=== PATIENT | female | born 1970 | race Caucasian/White ===

== ENCOUNTER 2017-09-30 02:43 | Observation (INO) ==
[2017-09-30] MEDS ORDERED: PHENERGAN 25 MG/ML VIAL 25 MG in SODIUM CHLORIDE 50 ML IV STA (03:22)
[2017-09-30] MEDS ORDERED: SODIUM CHLORIDE 1,000 ML IV STA (03:22)
[2017-09-30] MEDS ORDERED: PHENERGAN 25 MG/ML VIAL ONE (03:31)
--- NOTE | 2017-09-30 04:22 | CT ---
EXAM: CT head without contrast 09/30/2017. Sagittal and coronal reformatted images obtained HISTORY: Dizziness. Nausea COMPARISON: 10/18/2015 FINDINGS: There is no evidence of intracranial hemorrhage. The midline is maintained. There is no h ydrocephalus. Mild small vessel ischemic change. No cerebellar tonsillar ectopia. Evaluation of the calvarium shows no fracture. The mastoid air cells are normally pneumatized. IMPRESSION: No acute intracranial abnormality.
--- NOTE | 2017-09-30 04:48 | ED.PDOC ---
General ED Provider: Dr. CHIQUITA CURIEL-ER Chief Complaint: Dizziness Stated Complaint: i dont feel well Time Seen by Physician: 04:46 Mode of Arrival: Walk-In Information Source: Patient, Family Exam Limitations: No limitations Primary Care Provider: SHARON KIRK Nursing and Triage Documentation Reviewed and Agree: Yes Reviewed sepsis parameters & appropriate labs ordered?: Yes System Inflammatory Response Syndrome: Not Applicable Sepsis Protocol: For patient's 13 years and over: Temp is 96.8 and below OR 101 and greater Pulse >90 BPM Resp >20/minute Acutely Altered Mental Status Are patient's symptoms suggestive of a new infection, such as: -Pneumonia -Skin, Soft Tissue -Endocarditis -UTI -Bone, Joint Infection -Implantable Device -Acute Abdominal Infection -Wound Infection -Meningitis -Blood Stream Catheter Infection -Unknown Endocrine Complaint Exam - Diabetic Complication Complaint/Exam Onset/Duration: unknown Symptoms Are: Still present Timing: Constant Initial Severity: Mild Current Severity: Moderate Character: Lethargic Aggravating: Reports: Medication change Alleviating: Reports: None Associated Signs and Symptoms: Reports: Nausea Related History: Reports: DM 2 Cardiac Risk Factors: Reports: DM CVA Risk Factors: Reports: DM Serious Bacterial Infection Risk Factors: Reports: None Related Surgical History: Reports: None Acetone on Breath: No Dry Mucous Membranes: Yes Kussmaul Respirations: No Glascow Coma Scale (see protocol): 15 Meningeal Signs: No Focal Weakness: None Focal Sensory Loss: None Gait: Normal Nystagmus Present: No Gag Reflex Present: Yes Finger to Nose: Normal Romberg Test Positive: No Babinski Sign: Negative Right, Negative Left Heel to Toe Normal: Yes Differential Diagnoses: Diabetic Ketoacidosis, Hyperglycemia Quality Indicator For Non-Traumatic Chest Pain/Syncope: EKG Performed Review of Systems - Review Of Systems Constitutional: Reports: No symptoms Eyes: Reports: No symptoms Ears, Nose, Mouth, Throat: Reports: No symptoms Respiratory: Reports: No symptoms Cardiac: Reports: No symptoms GI: Reports: Nausea, Poor appetite, Poor fluid intake : Reports: No symptoms Musculoskeletal: Reports: No symptoms Skin: Reports: No symptoms Neurological: Reports: No symptoms Endocrine: Reports: No symptoms Hematologic/Lymphatic: Reports: No symptoms All Other Systems: Reviewed and Negative Past Medical History - Past Medical History Previously Healthy: No Endocrine: Reports: DM 2 Cardiovascular: Reports: Hypertension Respiratory: Reports: None Hematological: Reports: None Gastrointestinal: Reports: None Genitourinary: Reports: None Neuro/Psych: Reports: None Musculoskeletal: Reports: None Cancer: Reports: None Last Menstrual Period: A FEW YEARS AGO - Surgical History General Surgical History: Reports: Tubal ligation - Family History Family History: Reports: None - Social History Smoking Status: Current every day smoker, Heavy tobacco smoker Hx Substance Use: No Alcohol Screening: None - Immunizations Tetanus Shot up to Date: Yes Physical Exam - Physical Exam Appearance: Well-appearing Eyes: LENA, EOMI, Conjunctiva clear ENT: Ears normal, Nose normal, Oropharynx normal Neck: Supple Respiratory: Airway patent Cardiovascular: RRR, Pulses normal, No rub, No murmur GI/: Soft Musculoskeletal: Normal strength, ROM intact, No edema, No calf tenderness Skin: Warm, Dry, Normal color Neurological: Sensation intact, Motor intact, Reflexes intact, Cranial nerves intact, Alert, Oriented Psychiatric: Affect appropriate, Mood appropriate Interpretation - Radiology Interpretation Radiology Interpretation By: Radiologist Radiology Results: Negative Exam Interpreted: CT Scan - EKG Interpretation Time of EKG #1: 04:51 Rate: Normal Rhythm: Sinus Ectopy: None [place]: NL ST Segment: Normal Interpretation: nsr Physician Notification - Case Discussed Physician Notified: dr ji Time of Notification: 04:53 Critical Care Note - Critical Care Note Total Time (mins): 0 Course - Course Hematology/Chemistry: 09/30/17 03:25 09/30/17 03:25 Orders, Labs, Meds: Lab Review 09/30/17 09/30/17 09/30/17 02:45 03:20 03:25 WBC 8.18 RBC 5.11 Hgb 13.7 Hct 41.5 MCV 81.2 MCH 26.8 L MCHC 33.0 RDW Coeff of Jean 13.8 Plt Count 132 L Immature Gran % (Auto) 0.2 Neut % (Auto) 66.6 Lymph % (Auto) 27.4 [place] % (Auto) 4.6 Eos % (Auto) 0.7 Baso % (Auto) 0.5 Immature Gran # (Auto) 0.0 Neut # (Auto) 5.4 Lymph # (Auto) 2.2 [place] # (Auto) 0.4 Eos # (Auto) 0.1 Baso # (Auto) 0.0 Puncture Site Lb O2 Saturation 94.0 L ABG pH 7.399 ABG pCO2 35.4 ABG pO2 71.0 L ABG HCO3 21.9 L ABG Total CO2 23 ABG Base Excess -3 L Giovanny Test + FiO2 % 21.0 Sodium Potassium Chloride Carbon Dioxide Anion Gap BUN Creatinine Estimated GFR (MDRD) BUN/Creatinine Ratio Glucose Calcium Total Bilirubin AST ALT Alkaline Phosphatase Total Creatine Kinase Troponin I Total Protein Albumin Globulin Albumin/Globulin Ratio Amylase Lipase Serum , Qual Urine Color Yellow Urine Clarity Clear Urine pH 5.0 Ur Specific [place] 1.010 Urine Protein Negative Urine Glucose (UA) 2+ Urine Ketones Negative Urine Blood Negative Urine Nitrite Negative Urine Bilirubin Negative Urine Urobilinogen 0.2 Ur Leukocyte Esterase Negative 09/30/17 09/30/17 03:25 03:25 WBC RBC Hgb Hct MCV MCH MCHC RDW Coeff of Jean Plt Count Immature Gran % (Auto) Neut % (Auto) Lymph % (Auto) [place] % (Auto) Eos % (Auto) Baso % (Auto) Immature Gran # (Auto) Neut # (Auto) Lymph # (Auto) [place] # (Auto) Eos # (Auto) Baso # (Auto) Puncture Site O2 Saturation ABG pH ABG pCO2 ABG pO2 ABG HCO3 ABG Total CO2 ABG Base Excess Giovanny Test FiO2 % Sodium 130 L Potassium 4.7 Chloride 95 L Carbon Dioxide 21 Anion Gap 18.7 BUN 29 H Creatinine 1.63 H Estimated GFR (MDRD) 34.00 BUN/Creatinine Ratio 17.79 Glucose 581 H* Calcium 9.6 Total Bilirubin 0.6 AST 8 L ALT 10 L Alkaline Phosphatase 91 Total Creatine Kinase 36 Troponin I 0.0100 Total Protein 7.0 Albumin 3.4 Globulin 3.6 Albumin/Globulin Ratio 0.94 Amylase 67 Lipase 56 Serum , Qual Negative Urine Color Urine Clarity Urine pH Ur Specific [place] Urine Protein Urine Glucose (UA) Urine Ketones Urine Blood Urine Nitrite Urine Bilirubin Urine Urobilinogen Ur Leukocyte Esterase Orders Category Date Time Status ABG DRAW REQUEST Stat CARDIO 09/30/17 03:21 Completed EKG-(ED ONLY) Stat CARDIO 09/30/17 03:21 Completed ED IV/MEDIPORT/POWERPORT .ONCE EMERGENCY 09/30/17 03:21 Active ABG Stat LAB 09/30/17 03:20 Completed AMYLASE Stat LAB 09/30/17 03:25 Completed CBC W/ AUTO DIFF Stat LAB 09/30/17 03:25 Completed COMPREHENSIVE METABOLIC PANEL Stat LAB 09/30/17 03:25 Completed CREATINE KINASE Stat LAB 09/30/17 03:25 Completed LIPASE Stat LAB 09/30/17 03:25 Completed SERUM Stat LAB 09/30/17 03:25 Completed TROPONIN I Stat LAB 09/30/17 03:25 Completed URINALYSIS C & S IF INDICATED Stat LAB 09/30/17 02:45 Completed 0.9 % Sodium Chloride [Saline Flush] MEDS 09/30/17 03:20 Ordered 1 syr IVF PRN PRN Promethazine HCl [Phenergan 25 mg/ml Vial] MEDS 09/30/17 03:31 Discontinued 25 mg .ROUTE .STK-MED ONE Promethazine HCl [Phenergan 25 mg/ml Vial] 25 mg MEDS 09/30/17 03:22 Discontinued 0.9 % Sodium Chloride [Sodium Chloride] 50 ml IV ONCE Sodium Chloride 0.9% [Sodium Chloride] 1,000 ml MEDS 09/30/17 03:[address] HEAD W/O CONTRAST Stat RADS 09/30/17 03:22 Completed Medications Generic Name Dose Route Start Last Admin Trade Name Freq PRN Reason Stop Dose Admin Sodium Chloride 1 syr 09/30/17 03:20 09/30/17 03:43 Saline Flush IVF 1 syr PRN PRN Administration To flush IV Discontinued Medications Generic Name Dose Route Start Last Admin Trade Name Freq PRN Reason Stop Dose Admin Promethazine HCl 25 mg/ Sodium 51 mls @ 75 mls/hr 09/30/17 03:22 09/30/17 03: 58 Chloride IV 09/30/17 04:02 75 mls/hr ONCE STA Administration Sodium Chloride 1,000 mls @ 1,000 mls/hr 09/30/17 03:22 09/30/17 03:46 Sodium Chloride IV 09/30/17 04:21 1,000 mls/hr BOLUS STA Administration Vital Signs: Temp Pulse Resp BP Pulse Ox 09/30/17 02:44 97.3 F L 91 H 18 110/74 98 Departure - Departure Time of Disposition: 04:52 Disposition: PLACED OBSERVATION Discharge Problem: Hyperglycemia due to type 2 diabetes mellitus Qualifiers: 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: unspecified 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 insulin use status Qualified Code(s): E11.65 - Type 2 diabetes mellitus with hyperglycemia Instructions: Diabetic Hyperglycemia (ED) Condition: Good Pt referred to PMD for follow-up: No IPMP verified?: Yes Allergies/Adverse Reactions: Allergies latex Adverse Reaction (Verified 11/07/15 08:33) Home Medications: Ambulatory Orders Atorvastatin Calcium [Lipitor] 40 mg PO DAILY 10/07/12 Losartan Potassium 100 mg PO DAILY 10/07/12 Insulin Glargine,Hum.rec.anlog [Lantus] 50 units SUBCUT BEDTIME 03/08/15 Canagliflozin [Invokana] 300 mg PO DAILY 09/30/17 Gemfibrozil [Lopid] 600 mg PO BIDAC 09/30/17 Hydrochlorothiazide 25 mg PO DAILY 09/30/17 Metformin HCl 1,000 mg PO BID 09/30/17 Tamoxifen Citrate 20 mg PO DAILY 09/30/17 Venlafaxine HCl [Venlafaxine HCl ER] 75 mg PO DAILY 09/30/17 Disposition Discussed With: Patient, Family
[2017-09-30] MEDS ORDERED: ZOFRAN 4 MG/2 ML IVP PRN (04:55)
[2017-09-30] MEDS ORDERED: HUMULIN R SUBCUT PRN (04:56)
[2017-09-30] MEDS ORDERED: HUMULIN R IVP STA (04:57)
[2017-09-30] MEDS ORDERED: SODIUM CHLORIDE 1,000 ML IV SCH (05:00)
[2017-09-30 05:47] VITALS: BMI 29.9
[2017-09-30] MEDS ORDERED: LOPID PO SCH (06:30)
--- NOTE | 2017-09-30 07:18 | PCM ---
- Chief Complaint Chief Complaint: Dizziness, hyperglycemia, Ran out of meds. - History of Present Illness History of Present Illness: The patient has changed jobs recently and had no insurance. Saturday she started having nausea, dizziness, fatigue. She last took insulin on , normally taking 50 units lantus daily (vial) and metformin daily 1000mg BID and invokana. She has been spacing out her metformin due to recent job change back in august. 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 She has not been checking glucose, she has not been monitoring her BP despite HTN. Last A1C ~90 days ago, she does not remember the value. Has had pneumonia vaccine within past 5 years. She has not seen podiatry. Does not know if she has had microalbumin but is on ARB. Has history of hyperlipidemia mixed type on Fibrate and on Statin. She reports that she presented to ER 2:30-3:00 this am, seen by Dr. Wilkinson 4:46 am with glucose up to >500 and noted nausea, dizziness, fatigue, shoulder pain/weakness. No reported hip pain/weakness. PCP listed as [facility]. Mild to moderate symptoms, reported medication changes as listed "Spacing out metformin and ran out of my insulin needles." DDX considered Hyperglycemia, DKA. Did not meet SIRS criteria. Nausea, DM2 uncontrolled, last A1C unknown. ER note reviewed, ROS reviewed, No focal findings. Exam completed and dry mucus membranes and negative remainder exam. CT head completed in ER and negative, reviewed with patient this am as I saw her 07:08 am SCU1-1. EKG NSR, NL axis and normal per ER report to me. We talked about her ER labs and found her to have normal WBC, normal Hgb, normal Hct, mildly low platelets at 132. She had pseudohyponatremia with corrected sodium 138-142 depending on calculator. She had DARIO with Cr 1.63 and BUN 29. ABG completed by ER and somewhat complicated by the pseudohyponatremia. She had what appeared to be mixed metabolic alkalosis/metabolic acidosis with an increased gap. Using corrected sodium of 138, Albumin 3.4, pH 7.4, hc03 22. Calculated. UA was negative for ketones. Since urine ketones are negative I offered to her to check serum, discussed low yield and she declined. Her GCS is 15 and full, she is able to fully communicate and she feels much better already. We discussed the repeat labs this am at 06:53 and her glucose was down from 582 down to 252, sodium 136, K+ 3.9 and creatinine had improved from 1.63 to 1.27. Still with some nausea, the proximal shoulder weakness has resolved and now she just feels tired from stay in ER overnight. DARIO at presentation, fluid hydration improving. No A1C was ordered, I have ordered this, this am. Diabetic diet. She has been started on lovenox while in hospital. Monitored, no events since 05:00 when she got to floor per telemetry. Tetanus status is up to date. Pneumonia status is up to date. Not interested in discussion about smoking cessation. We will try to get her a week worth of insulin/needles. I will provide sample of insulin pen with 1 week of needles until she can get what she needs from her primary team Rabia Chavarria (listed as Fe). Reports history of breast lumpectomy. Family history of breast cancer and was put on tamoxifen and she started menopause 44 years old. No bleeding since that time. Sexually active. No vomiting/ diarrhea. No abdominal pain. NO vaginal discharge, no bleeding. No Muscle weakness now. No pain. Ambulatory. - Review of Systems Constitutional: weakness, fatigue, loss of appetite. No: fever, chills, sweats , other Eyes: No: blurred vision, double-vision, discharge, itching, pain, redness, photophobia, other Ears: No: pain, bleeding, drainage, ringing, hearing loss, other Nose: No: bleeding, congestion, discharge, other Throat: No: pain, swelling, voice change, other Mouth: other (dentures). No: bleeding, pain, swelling Respiratory: No: cough, shortness of air, wheeze, hemoptysis, pain with breathing, other Cardiovascular: No: chest pain, left arm pain, diaphoresis, PND, orthopnea, edema, palpitations, syncope, other Gastrointestinal: nausea. No: abdominal pain, other, vomiting, diarrhea, melena , hematemesis, hematochezia, dysphagia, constipation Genitourinary: No: dysuria, hematuria, frequency, incontinence, flank pain, vaginal discharge, abnormal bleeding, pelvic pain, other Neurological: No: headache, other, dizziness, seizure, numbness, weakness, speech difficulty, problems with walking, tremor, fainting Musculoskeletal: No: pain, swelling in joints, other Skin: No: rash, pruritus, lacerations, wounds, bruising, other Immunology: No: hives, itching, frequent infections, difficulty healing, other Hematology: No: easy bruising, easy bleeding, swollen glands, other Endocrine: No: weight changes, cold intolerance, heat intolerance, excessive thirst, excessive hunger, polyuria, other Psychiatric: No: depression, anxiety, sleeplessness, hopelessness, suicidal, hallucinations, other Habits: tobacco use. No: substance use, alcohol use, other - Past Medical History Past Medical History: DM2 Control status unknown, HTN, Menopause, Breast Lump, Hyperlipidemia, Overweight. - Past Surgical History Past Surgical History: Lumpectomy 2015, BTL 1999, Knee scope 2013 - Allergies Allergies/Adverse Reactions: Allergies Allergy/AdvReac Type Severity Reaction Status Date / Time latex AdvReac Verified 11/07/15 08:33 - Medications Medications: Medications Generic Name Dose Route Start Last Admin Trade Name Freq PRN Reason Stop Dose Admin Atorvastatin Calcium 40 mg 09/30/17 09:00 Lipitor PO DAILY MAYRA Enoxaparin Sodium 30 mg 09/30/17 09:00 Lovenox SUBCUT DAILY MAYRA Gemfibrozil 600 mg 09/30/17 06:30 Lopid PO BIDAC MAYRA Sodium Chloride 1,000 mls @ 100 mls/hr 09/30/17 05:00 Sodium Chloride IV .Q10H MAYRA Insulin Glargine unit 09/30/17 21:00 Lantus SUBCUT BEDTIME MAYRA Insulin Human Regular 0 unit 09/30/17 04:56 Humulin R SUBCUT PRN PRN Hyperglycemica Protocol Losartan Potassium 100 mg 09/30/17 09:00 Cozaar PO DAILY MAYRA Non-Formulary Medication 75 mg 09/30/17 09:00 Venlafaxine Hcl [Venlafaxine Hcl Er] PO DAILY MAYRA Non-Formulary Medication 20 mg 09/30/17 09:00 Tamoxifen Citrate [Tamoxifen Citrate] PO DAILY MAYRA Ondansetron HCl 4 mg 09/30/17 04:55 Zofran 4 Mg/2 Ml IVP Q4HR PRN Nausea / Vomiting Sodium Chloride 1 syr 09/30/17 03:20 09/30/17 03:43 Saline Flush IVF 1 syr PRN PRN Administration To flush IV - Family History Past Family History: Mother: . Breast cancer. Father: . Lung Cancer, HTN, DM, Hyperlipidemia. Brother: Healthy. Sister: Healthy. Sister: DM. Sons x4: healthy - Social History Past Social History: Tobacco: 1 ppd x 30 years. ETOH: Rare. Drugs: None. 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 - Vital Signs Temperature: 97.7 F Pulse Rate: 81 Respiratory Rate: 16 Blood Pressure: 110/74 O2 Sat by Pulse Oximetry: 97 - Body Composition Height: 5 ft 3 in Weight: 168 lb 13.985 oz Body Mass Index (BMI): 29.9 - Physical Examination HEENT: Vital Signs - 24 hr 09/30/17 09/30/17 09/30/17 02:44 05:33 08:45 Temperature 97.3 F L 97.7 F 97.7 F Pulse Rate 91 H 81 81 Respiratory 18 18 16 Rate Blood Pressure 110/74 110/74 O2 Sat by Pulse 98 97 97 Oximetry Constitutional: Appearance-No acute distress, lying in exam bad room SCU- 1Consistent with stated age. Orientation- Oriented x 3, alertGait-Normal pace, normal arm movement. Build and Nutrition- overweight BMI 29.9 General- Patient is pleasant and cooperative with the interview and exam. Full sentences, good eye contact, normal cognition. Integumentary: General-No rashes, ulcers or lesions. Palpation- Normal skin moisture/turgor. Skin is warm to touch, appropriate. Capillary refill is normal bilateral Upper and lower extremity. Skin is warm/dry and w/o rashes. Head/Neck: Head- normocephalic and atraumatic. Neck- without visible/palpable lumps or pulsations. Palpation- No bony tenderness about head/neck along frontal, occipital, temporal, parietal, mastoid, jawline, zygoma, orbit or any other location. NO temporal artery tenderness. No TMJ tenderness. Neck Supple. Thyroid-No thyromegaly, no nodules Eye: Bilaterally PERRLA, EOMI. No discharge. Upper and lower eyelids are normal. Sclera/conjunctiva normal without discharge. Cornea is normal and clear. Lens is normal. Eyeball appears normal. No ciliary flushing, no conjunctival injection. ENMT: Pinna- normal without tenderness or erythema. External auditory canal Left- normal without erythema or discharge, no excessive cerumen. External auditory canal Right-normal without erythema or discharge, no excessive cerumen. TM left- Baer/pearly, normal light reflex and anatomy TM Right- Baer/ pearly, normal light reflex and anatomy Hearing Assessment-normal to conversational speech. Nose and sinus- No sinus tenderness along frontal/ maxillary region. External appearance normal and midline. Nares- bilateral quiet airflow, no discharge. Nasal mucosa- No bleeding noted and no ulcerations observed. [place], moist. Turbinates non boggy. Lips- normal color, appear moist without cracks/lesions Oral Cavity/Palate- hard/soft palate intact without lesions,. No Thrush. entition assessed upper dentures in place. Mucosa Tacky, dry. Tongue normal midline. Oropharynx- no pharyngeal erythema, Uvula midline. No post nasal drip. No exudate. Salivary glands- Non tender to palpation CHEST/LUNG: Inspection- symmetric chest wall no pectus deformity. Normal effort , no distress, no use of accessory muscles. Palpation- nontender sternum, ribline. No abnormal pulsations. Auscultation- Breath sounds normal throughout all lung jacobsen. Normal tracheal sounds, Normal bronchial sounds overlying sternum, Bronchovessicular sounds normal between scapulae posteriorly, Normal vessicular breath sounds heard throughout periphery. Lungs are clear today. Adventitious sounds- No wheezes, rales, rhonchi. CARDIOVASCULAR: Carotid artery- normal, no bruits or abnormal pulsations. Jugular vein- no pulsations. Palpation/Percussion- Normal PMI, no palpable thrill Auscultation- Regular rate and rhythm. No murmur noted in sitting, supine positions. Extremities- no digital clubbing, cyanosis, edema, increased warmth. ABDOMEN: Inspection- normal and no visible pulsations. Normal contour. Auscultation- Bowel sounds normal, no abdominal bruits. Palpation/Percussion- soft, non-tender, no rebound tenderness, no rigidity (guarding), no jar tenderness, no masses. Liver-no hepatomegaly, Spleen no splenomegaly, Hernias - none. Rectal not examined. Peripheral Vascular: Upper extremity Left- Normal temperature with pink nailbeds and no ulcerations. Upper extremity Right- Normal temperature with pink nailbeds and no ulcerations. Lower extremity- Normal temperature with pink nailbeds and no ulcerations. DP pulses 2+ bilaterally. Pedal hair intact. Normal capillary refill. Edema- No edema. Numerous excoriations bilateral LE. History of cats at home per patient. Musculoskeletal: Generalized-No generalized swelling or edema of extremities, no digital clubbing or cyanosis, neurovascularly intact all four extremities. Upper extremity- Symmetrical posture. No visible deformity. Normal sensation along medial and lateral upper extremity proximally and distally. NO tenderness overlying shoulder, lateral/medial epicondyle. Recruiter Account Manager 5/5 and strength 5/5 bilateral UE. Elbow palpated, no tenderness overlying olecranon. Normal supination, pronation to active/passive ROM and to resisted rotation. Bicep insertion/tricep insertion appear normal without obvious pathology. Rotator cuff evaluated and intact. Normal wrist ROM bilaterally. Normal hand movement, intrinsic muscles of hands normal. No tenderness to palpation of hands/wrists/ elbows. Lower extremity- Hip: Not tender to palpation, no pain, no swelling, edema or erythema of surrounding tissue, normal strength and tone. Normal appearing hip ROM bilaterally without pain. Knee: Knee ROM normal. No tenderness overlying trochanters, no tenderness about patella, quad tendon, patellar tendon. No tenderness at tibial tuberosity. Ankle: normal ROM not tender to palpation along medial/lateral malleolus. Foot: Normal movement of toes, no tenderness bilateral feet/toes. Normal foot type. Spine/Ribs- No deformities, masses or tenderness, no known fractures, normal strength, Normal ROM. Normal stability No tenderness along C/T/L spine. Normal appearing ROM about spine. Neurological: General- Moves all 4 extremities symmetrically. Symmetrical face and body posture. Cranial nerves- individually evaluated II-XII and intact. PERRLA, Normal EOMI, visual/special senses appear intact, Face is symmetrical and normal sensation/movement, normal tongue, normal strength/posture of neck musculature. Reflexes- intact with DTR 2+ patellar, Achilles, bicep, brachial, tricep. Ankle clonus normal with 2 beats. Strength- 5/5 bilateral UE and LE. Soft touch- intact bilateral UE and LE. Temperature sensation- intact bilateral UE and LE. Neuropsych: Oriented- Person, place, time. (AAOx3), Mood/affect- normal and congruent. Able to articulate well. Speech-Normal speech, normal rate, normal tone, normal use of language, volume and coherence. Thought content- normal with ability to perform basic computations and apply abstract thought/reason. Associations- intact, no SI/HI, no hallucinations, delusions, obsessions. Judgment/insight- Appropriate. Memory-Recall intact, remote and recent memory intact. Knowledge- Age appropriate fund of knowledge, concentration and attention span normal. Lymphatic: Head/Neck- normal size and non tender to palpation. Axillary- normal size and non tender to palpation. Femoral and Inguinal- normal size and non tender to palpation. - Lab/Tests/Diagnostic Imaging Lab/Tests/Diagnostic Imaging: Laboratory Last Values WBC 8.63 K/ul (4.6-10.2) 09/30/17 06:53 RBC 4.92 10^6/ul (4.20-5.40) 09/30/17 06:53 Hgb 13.3 g/dl (12.0-16.0) 09/30/17 06:53 Hct 40.0 % (37.0-47.0) 09/30/17 06:53 MCV 81.3 fl (81.0-99.0) 09/30/17 06:53 MCH 27.0 pg (27.0-31.0) 09/30/17 06:53 MCHC 33.3 (31.8-35.4) 09/30/17 06:53 RDW Coeff of Jean 13.9 % (11.6-14.8) 09/30/17 06:53 Plt Count 131 10^3/uL (140-440) L 09/30/17 06:53 Immature Gran % (Auto) 0.2 % (0.0-5.0) 09/30/17 06:53 Neut % (Auto) 51.8 09/30/17 06:53 Lymph % (Auto) 41.0 (10.0-50.0) 09/30/17 06:53 [place] % (Auto) 5.8 (0-10) 09/30/17 06:53 Eos % (Auto) 0.7 % (0.0-7.0) 09/30/17 06:53 Baso % (Auto) 0.5 % (0.0-3.0) 09/30/17 06:53 Immature Gran # (Auto) 0.0 (0.0-1.0) 09/30/17 06:53 Neut # (Auto) 4.5 K/ul (2.0-6.9) 09/30/17 06:53 Lymph # (Auto) 3.5 K/uL (0.60-3.4) H 09/30/17 06:53 [place] # (Auto) 0.5 K/uL (0.4-2.0) 09/30/17 06:53 Eos # (Auto) 0.1 K/ul (0.0-0.7) 09/30/17 06:53 Baso # (Auto) 0.0 K/uL (0-0.2) 09/30/17 06:53 Puncture Site Lb 09/30/17 03:20 O2 Saturation 94.0 % (95-100) L 09/30/17 03:20 ABG pH 7.399 (7.35-7.45) 09/30/17 03:20 ABG pCO2 35.4 mmHg (35-45) 09/30/17 03:20 ABG pO2 71.0 mmHg (85-100) L 09/30/17 03:20 ABG HCO3 21.9 (22.0-26.0) L 09/30/17 03:20 ABG Total CO2 23 (22.0-28.0) 09/30/17 03:20 ABG Base Excess -3 (-2.0-2.0) L 09/30/17 03:20 Giovanny Test + 09/30/17 03:20 FiO2 % 21.0 % 09/30/17 03:20 Sodium 136 mmol/L (136-145) 09/30/17 06:53 Potassium 3.9 mmol/L (3.5-5.10) 09/30/17 06:53 Chloride 102 mmol/L (98-107) 09/30/17 06:53 Carbon Dioxide 22 mmol/L (21-32) 09/30/17 06:53 Anion Gap 15.9 09/30/17 06:53 BUN 28 mg/dL (7-18) H 09/30/17 06:53 Creatinine 1.27 mg/dL (0.60-1.30) 09/30/17 06:53 Estimated GFR (MDRD) 45.00 mL/min 09/30/17 06:53 BUN/Creatinine Ratio 22.04 09/30/17 06:53 Glucose 252 mg/dL (70-110) H D 09/30/17 06:53 Hemoglobin A1c 12.2 (4.8-6.0) H 09/30/17 06:53 Calcium 9.1 mg/dL (8.2-10.2) 09/30/17 06:53 Total Bilirubin 0.4 mg/dL (0.00-1.20) 09/30/17 06:53 AST 7 U/L (15-37) L 09/30/17 06:53 ALT 10 U/L (12-78) L 09/30/17 06:53 Alkaline Phosphatase 79 U/L (42-98) 09/30/17 06:53 Total Creatine Kinase 36 U/L 09/30/17 03:25 Troponin I 0.0100 ng/ml (0.0000-0.4000) 09/30/17 03:25 Total Protein 6.4 g/dL (6.4-8.2) 09/30/17 06:53 Albumin 3.1 g/dL (3.4-5.0) L 09/30/17 06:53 Globulin 3.3 09/30/17 06:53 Albumin/Globulin Ratio 0.94 09/30/17 06:53 Amylase 67 U/L (25-115) 09/30/17 03:25 Lipase 56 U/L (8-78) 09/30/17 03:25 Serum , Qual Negative (NEGATIVE) 09/30/17 03:25 Urine Color Yellow (YELLOW) 09/30/17 02:45 Urine Clarity Clear (CLEAR) 09/30/17 02:45 Urine pH 5.0 (5-9) 09/30/17 02:45 Ur Specific [place] 1.010 (1.005-1.030) 09/30/17 02:45 Urine Protein Negative (NEGATIVE) 09/30/17 02:45 Urine Glucose (UA) 2+ (NEGATIVE) 09/30/17 02:45 Urine Ketones Negative (NEGATIVE) 09/30/17 02:45 Urine Blood Negative (NEGATIVE) 09/30/17 02:45 Urine Nitrite Negative (NEGATIVE) 09/30/17 02:45 Urine Bilirubin Negative (NEGATIVE) 09/30/17 02:45 Urine Urobilinogen 0.2 (0.2) 09/30/17 02:45 Ur Leukocyte Esterase Negative (NEGATIVE) 09/30/17 02:45 Na/K Trends 09/30/17 09/30/17 Range/Units 03:25 06:53 Sodium 130 L 136 (136-145) mmol/L Potassium 4.7 3.9 (3.5-5.10) mmol/L Glucose Trends 09/30/17 09/30/17 Range/Units 03:25 06:53 Glucose 581 H* 252 H D (70-110) mg/dL CT Head: Negative for acute processes. - Assessment (1) DARIO (acute kidney injury) Status: Acute Code(s): N17.9 - ACUTE KIDNEY FAILURE, UNSPECIFIED SNOMED Code (s): 02599254 (2) Hyperglycemia due to type 2 diabetes mellitus Status: Acute Code(s): E11.65 - TYPE 2 DIABETES MELLITUS WITH HYPERGLYCEMIA SNOMED Code(s): 69279981, 352795655767803 Qualifiers: Diabetes mellitus termite technician insulin use: unspecified half-way insulin use status Qualified Code(s): E11.65 - Type 2 diabetes mellitus with hyperglycemia (3) Hyponatremia Status: Acute Code(s): E87.1 - HYPO-OSMOLALITY AND HYPONATREMIA SNOMED Code( s): 78996859 (4) Smokes 1 pack of cigarettes per day Status: Acute Code(s): F17.210 - NICOTINE DEPENDENCE, CIGARETTES, UNCOMPLICATED SNOMED Code(s): 48117469 - Plan Plan: Hyperglycemia: History of Diabetes Type 2, she reports that her PCP Rabia Chavarria has done w/u for Type 1 vs type 2. She is Uncontrolled, Insulin dependent. At this time Nephropathy/retinopathy/neuropathy status unknown. She has DARIO at present. Reviewed goals of Diabetes today. The Goal is to have an Hgb A1C 7.0-8.0% for most patients. For the remainder a discussion with patient about R/B/A and review of reasonable hypoglycemic symptoms is needed. Good BP control is encouraged with Goal BP based on JNC 8 guidelines 2014 of SBP <140 and DBP <90. She is at goal. She is on ARB. She is on statin. Close monitoring of Lipid levels encouraged. Recommend once yearly eye evaluation by optometry to be followed as outpatient. Good foot health discussed, no sores/lesions noted today. Discussed need for compliance and need to take medications as rx. Weight needs to be monitored. Monitor portions and caloric intake. We discussed low likelihood of Hyperosmolar/hyperglycemia and DKA at this time. She was hyperglycemic due to missing medications. No recent A1C within past 90 days and she does not know her control status. We will check A1C today. Continue her lantus at 50 units. I will get her a sample of long acting insulin pen with 1 week worth of needles for the pen. We will also discharge her with Rx for insulin pen. She is on Invokana, discussed with her to talk to her PCP about this agent, risks of amputation discussed. DARIO is resolving, Cr imp. 13 units 05:05. I stopped regular insulin and will give meal time insulin as better way to reduce her post prandials. - Pneumovax frequency discussed. She has had PPSV23 per her report. - Yearly microalbumin as outpatient - Yearly eye evaluation as outpatient - Continue Cozaar. - Offered museum educator, declined. - Continue NS 100 ml/hour - Continue lantus 50units daily - Humalog 5 units with meals today. (between 0.05 and 0.1 units/kg/meal). - Patient to talk to PCP about Invokana as outpatient. - Hold metformin while in hospital. DARIO: Cr improved from 1.63 to 1.27 this am with fluid hydration and glycemic control. GFR has gone from 34 to 45. - Continue NS 100 ml/hour - Monitor K+ as 3.9 on recent check. No replacement just yet. - Hold metformin while in hospital. Essential HTN: Controlled on home meds. continue. She is on ARB. - Continue cozaar. Mixed Hyperlipidemia: Follow-up as outpatient. DVT Prophy: Lovenox 30mg Subcutaneous. 1 Pack per day Tobacco: Tobacco Cessation discussed today for 2 minutes. We reviewed lifestyle choices and discussed quitting. Ready to quit status discussed. The risks and hazards of continued tobacco abuse were discussed with the patient today and total tobacco cessation as recommended. It was clearly and unambiguously explained that continued tobacco usage will adversely affect overall morbidity and mortality of the patient. Patient was informed that tobacco use can lead to numerous cancers, worsening of cardiovascular and pulmonary systems and that lung damage is often permanent and irreversible. I advised the patient to inform me if any further assistance is requested, as we can offer counseling services, nicotine replacement inhaled, patch, lozenge, gum , or prescription medications to include Chantix or Wellbutrin for assistance. She is not interested in cessation at this time. Disposition: If her sugars continue to improve, hopefully home this afternoon with f/u with Rabia Chavarria tomorrow. I will give her an insulin pen at discharge with 1 week worth of needles. We will try to get her 1 week worth of her insulin syringes as well. She is not on meal time insulin, with A1C today at 12.2 it is likely needed. She needs to f/u with PCP to discuss accucheck, fasting/post prandial and to work on A1C. DM educator declined. High acuity severity with DARIO, Hyperglycemia. Improving now and more stable. REviewed ER note, talked with ER attending, talked with am nurse, reviewed telemetry, reviewed labs, reviewed EKG and talked with patient. Labs are improving total 70 minutes spent in admission this am. - Admit to Obs - She would like to go home this afternoon if possible. Discussed if feeling better this could be possible. - High acuity with DARIO and hyperglycemia, but improving.
[2017-09-30] MEDS ORDERED: NON-FORMULARY MEDICATION (Tamoxifen Citrate [Tamoxifen Citrate] 20 MG) PO SCH (09:00)
[2017-09-30] MEDS ORDERED: LIPITOR PO SCH (09:00)
[2017-09-30] MEDS ORDERED: EFFEXOR XR PO SCH (09:00)
[2017-09-30] MEDS ORDERED: VENLAFAXINE HCL 75 MG PO SCH (09:00)
[2017-09-30] MEDS ORDERED: COZAAR PO SCH (09:00)
[2017-09-30] MEDS ORDERED: LOVENOX SUBCUT SCH (09:00)
[2017-09-30] MEDS: HUMALOG SUBCUT SCH ×2 (09:14→11:30)
[2017-09-30 10:42] VITALS: BP 99/59; TEMP 98.6
[2017-09-30] MEDS ORDERED: HUMALOG SUBCUT SCH (12:00)
--- NOTE | 2017-09-30 13:50 | PCM.DC ---
Final Diagnosis: Hyperglycemia due to type 2 diabetes mellitus (Acute) DARIO (acute kidney injury) (Resolved) Hyponatremia (Resolved) Smokes 1 pack of cigarettes per day (chronic) Overweight BMI 29.9. Mixed hyperlipidemia (CHRONIC/STABLE) Essential HTN (CHRONIC/STABLE) (1) Hyperglycemia due to type 2 diabetes mellitus Status: Acute Code(s): E11.65 - TYPE 2 DIABETES MELLITUS WITH HYPERGLYCEMIA SNOMED Code(s): 10599671, [id number] Qualifiers: Diabetes mellitus chcf insulin use: unspecified chcf insulin use status Qualified Code(s): E11.65 - Type 2 diabetes mellitus with hyperglycemia (2) DARIO (acute kidney injury) Status: Resolved Code(s): N17.9 - ACUTE KIDNEY FAILURE, UNSPECIFIED SNOMED Code(s): 62484136 (3) Hyponatremia Status: Resolved Code(s): E87.1 - HYPO-OSMOLALITY AND HYPONATREMIA SNOMED Code(s): 34591092 (4) Smokes 1 pack of cigarettes per day Status: Chronic Code(s): F17.210 - NICOTINE DEPENDENCE, CIGARETTES, UNCOMPLICATED SNOMED Code(s): 22945372 Reason for Hospitalization: Hyperglycemia with glucose 581, DARIO, Pseudohyponatremia (RESOLVED WITH GLUCOSE CONTROL), Essential HTN (STABLE/CHRONIC), Mixed hyperlipidemia (CHRONIC/STABLE) . Prognosis at Discharge: Improved. A1C was 12.2 and markedly elevated. Glucose likely at baseline now. She feels fine and back to normal. Condition at Discharge: Improved Medications at Discharge: Ambulatory Orders Medication Instructions Recorded Atorvastatin Calcium [Lipitor] 40 mg PO DAILY 10/07/12 Losartan Potassium 100 mg PO DAILY 10/07/12 Insulin Glargine,Hum.rec.anlog 50 units SUBCUT BEDTIME 03/08/15 [Lantus] Canagliflozin [Invokana] 300 mg PO DAILY 09/30/17 Gemfibrozil [Lopid] 600 mg PO BIDAC 09/30/17 Hydrochlorothiazide 25 mg PO DAILY 09/30/17 Tamoxifen Citrate 20 mg PO DAILY 09/30/17 Venlafaxine HCl [Venlafaxine HCl 75 mg PO DAILY 09/30/17 ER] Resume home meds. Sample BASAGLAR 100units/ml given to patient [id number] 11/30. (USE THIS OR LANTUS NOT BOTH) Sample Insulin pen needles #7 given to patient today. Stop Metformin Resume other home meds. Lab/Diagnostics: Laboratory Last Values WBC 8.63 K/ul (4.6-10.2) 09/30/17 06:53 RBC 4.92 10^6/ul (4.20-5.40) 09/30/17 06:53 Hgb 13.3 g/dl (12.0-16.0) 09/30/17 06:53 Hct 40.0 % (37.0-47.0) 09/30/17 06:53 MCV 81.3 fl (81.0-99.0) 09/30/17 06:53 MCH 27.0 pg (27.0-31.0) 09/30/17 06:53 MCHC 33.3 (31.8-35.4) 09/30/17 06:53 RDW Coeff of Jean 13.9 % (11.6-14.8) 09/30/17 06:53 Plt Count 131 10^3/uL (140-440) L 09/30/17 06:53 Immature Gran % (Auto) 0.2 % (0.0-5.0) 09/30/17 06:53 Neut % (Auto) 51.8 09/30/17 06:53 Lymph % (Auto) 41.0 (10.0-50.0) 09/30/17 06:53 [place] % (Auto) 5.8 (0-10) 09/30/17 06:53 Eos % (Auto) 0.7 % (0.0-7.0) 09/30/17 06:53 Baso % (Auto) 0.5 % (0.0-3.0) 09/30/17 06:53 Immature Gran # (Auto) 0.0 (0.0-1.0) 09/30/17 06:53 Neut # (Auto) 4.5 K/ul (2.0-6.9) 09/30/17 06:53 Lymph # (Auto) 3.5 K/uL (0.60-3.4) H 09/30/17 06:53 [place] # (Auto) 0.5 K/uL (0.4-2.0) 09/30/17 06:53 Eos # (Auto) 0.1 K/ul (0.0-0.7) 09/30/17 06:53 Baso # (Auto) 0.0 K/uL (0-0.2) 09/30/17 06:53 Puncture Site Lb 09/30/17 03:20 O2 Saturation 94.0 % (95-100) L 09/30/17 03:20 ABG pH 7.399 (7.35-7.45) 09/30/17 03:20 ABG pCO2 35.4 mmHg (35-45) 09/30/17 03:20 ABG pO2 71.0 mmHg (85-100) L 09/30/17 03:20 ABG HCO3 21.9 (22.0-26.0) L 09/30/17 03:20 ABG Total CO2 23 (22.0-28.0) 09/30/17 03:20 ABG Base Excess -3 (-2.0-2.0) L 09/30/17 03:20 Giovanny Test + 09/30/17 03:20 FiO2 % 21.0 % 09/30/17 03:20 Sodium 138 mmol/L (136-145) 09/30/17 12:25 Potassium 3.7 mmol/L (3.5-5.10) 09/30/17 12:25 Chloride 101 mmol/L (98-107) 09/30/17 12:25 Carbon Dioxide 25 mmol/L (21-32) 09/30/17 12:25 Anion Gap 15.7 09/30/17 12:25 BUN 30 mg/dL (7-18) H 09/30/17 12:25 Creatinine 1.20 mg/dL (0.60-1.30) 09/30/17 12:25 Estimated GFR (MDRD) 48.00 mL/min 09/30/17 12:25 BUN/Creatinine Ratio 25.00 09/30/17 12:25 Glucose 230 mg/dL (70-110) H 09/30/17 12:25 Hemoglobin A1c 12.2 (4.8-6.0) H 09/30/17 06:53 Calcium 9.3 mg/dL (8.2-10.2) 09/30/17 12:25 Total Bilirubin 0.4 mg/dL (0.00-1.20) 09/30/17 12:25 AST 7 U/L (15-37) L 09/30/17 12:25 ALT 10 U/L (12-78) L 09/30/17 12:25 Alkaline Phosphatase 79 U/L (42-98) 09/30/17 12:25 Total Creatine Kinase 36 U/L 09/30/17 03:25 Troponin I 0.0100 ng/ml (0.0000-0.4000) 09/30/17 03:25 Total Protein 6.4 g/dL (6.4-8.2) 09/30/17 12:25 Albumin 3.1 g/dL (3.4-5.0) L 09/30/17 12:25 Globulin 3.3 09/30/17 12:25 Albumin/Globulin Ratio 0.94 09/30/17 12:25 Amylase 67 U/L (25-115) 09/30/17 03:25 Lipase 56 U/L (8-78) 09/30/17 03:25 Serum , Qual Negative (NEGATIVE) 09/30/17 03:25 Urine Color Yellow (YELLOW) 09/30/17 02:45 Urine Clarity Clear (CLEAR) 09/30/17 02:45 Urine pH 5.0 (5-9) 09/30/17 02:45 Ur Specific [place] 1.010 (1.005-1.030) 09/30/17 02:45 Urine Protein Negative (NEGATIVE) 09/30/17 02:45 Urine Glucose (UA) 2+ (NEGATIVE) 09/30/17 02:45 Urine Ketones Negative (NEGATIVE) 09/30/17 02:45 Urine Blood Negative (NEGATIVE) 09/30/17 02:45 Urine Nitrite Negative (NEGATIVE) 09/30/17 02:45 Urine Bilirubin Negative (NEGATIVE) 09/30/17 02:45 Urine Urobilinogen 0.2 (0.2) 09/30/17 02:45 Ur Leukocyte Esterase Negative (NEGATIVE) 09/30/17 02:45 Na/K Trends 09/30/17 09/30/17 09/30/17 Range/Units 03:25 06:53 12:25 Sodium 130 L 136 138 (136-145) mmol/L Potassium 4.7 3.9 3.7 (3.5-5.10) mmol/L Glucose Trends 09/30/17 09/30/17 09/30/17 Range/Units 03:25 06:53 12:25 Glucose 581 H* 252 H D 230 H (70-110) mg/dL CT HEAD: NEGATIVE EKG: Normal. Education Provided to Patient and Family: 1. Personally called and set up appt for this Saturday 10:45 appt with Ayleen WADDELL. 2. Discussed to consider Stopping metformin, I am holding it at discharge. 3. Will continue invokana for now. Would talk with PCP about changing this with recent literature supporting 2x risks of amputation. 4. Would consider trying to get Xultophy as an option for patient as she does not want meal time insulin for now. GLP-1 would help with post prandials and would also help with weight and the basaglar could help with her basal insulin needs. 5. Personally Demonstrated how to use insulin pen. Sample Basaglar [id number] given to patient with pen needles x 7. Sample box had 7 needles. I personally primed the pen and demonstrated how to use the pen. Discussed that this was the same as lantus and to not use lantus also. I gave her #5 insulin syringes that have up to 100 units. I discussed need to consider meal time insulin, declined today. Declined diabetic education. I counseled regarding 6. Smoking cessation d/w patient but she did not want to quit smoking at this time. 7. Close f/u with PCP encouraged. Diabetic education d/w patient today. We spent total of 30 minutes 13:00 talking about insulin, I contacted PCP. I set up the f/u. Patient to see PCP this Saturday. As noted consider trying to get rep for XUltophy or patient assistance as this may be a great choice for this patient. Option 2 would be to consider adding 5 units humalog with meals to start (0.05-0.1 units/kg/meal) . She can meet with DM education to learn carb counting to adjust but her basal is likely 7-8 units with each meal. If she has not had w/u for Type 1 Vs type 2, I would recommend this as well to see if oral agents are reasonable. Discussed lab w/u with patient, she thinks she has had this (abs against pancreas/insulin/zinc transporter and Cpeptide). F/U with PCP and patient compliance highly stressed today. Not interested in smoking cessation. Follow-ups: 1. PCP saturday 10:45 Ayleen Chavarria PA-C Disposition: HOME SELF-CARE Hospital Course: ADMIT 09/30/17 The patient has changed jobs recently and had no insurance. Saturday she started having nausea, dizziness, fatigue. She last took insulin on , normally taking 50 units lantus daily (vial) and metformin daily 1000mg BID and invokana. She has been spacing out her metformin due to recent job change back in august. 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 She has not been checking glucose, she has not been monitoring her BP despite HTN. Last A1C ~90 days ago, she does not remember the value. Has had pneumonia vaccine within past 5 years. She has not seen podiatry. Does not know if she has had microalbumin but is on ARB. Has history of hyperlipidemia mixed type on Fibrate and on Statin. She reports that she presented to ER 2:30-3:00 this am, seen by Dr. Wilkinson 4:46 am with glucose up to >500 and noted nausea, dizziness, fatigue, shoulder pain/weakness. No reported hip pain/weakness. PCP listed as [facility]am[facility]. Mild to moderate symptoms, reported medication changes as listed "Spacing out metformin and ran out of my insulin needles." DDX considered Hyperglycemia, DKA. Did not meet SIRS criteria. Nausea, DM2 uncontrolled, last A1C unknown. ER note reviewed, ROS reviewed, No focal findings. Exam completed and dry mucus membranes and negative remainder exam. CT head completed in ER and negative, reviewed with patient this am as I saw her 07:08 am SCU1-1. EKG NSR, NL axis and normal per ER report to me. We talked about her ER labs and found her to have normal WBC, normal Hgb, normal Hct, mildly low platelets at 132. She had pseudohyponatremia with corrected sodium 138-142 depending on calculator. She had DARIO with Cr 1.63 and BUN 29. ABG completed by ER and somewhat complicated by the pseudohyponatremia. She had what appeared to be mixed metabolic alkalosis/metabolic acidosis with an increased gap. Using corrected sodium of 138, Albumin 3.4, pH 7.4, hc03 22. Calculated. UA was negative for ketones. Since urine ketones are negative I offered to her to check serum, discussed low yield and she declined. Her GCS is 15 and full, she is able to fully communicate and she feels much better already. We discussed the repeat labs this am at 06:53 and her glucose was down from 582 down to 252, sodium 136, K+ 3.9 and creatinine had improved from 1.63 to 1.27. Still with some nausea, the proximal shoulder weakness has resolved and now she just feels tired from stay in ER overnight. DARIO at presentation, fluid hydration improving. No A1C was ordered, I have ordered this, this am. Diabetic diet. She has been started on lovenox while in hospital. Monitored, no events since 05:00 when she got to floor per telemetry. Tetanus status is up to date. Pneumonia status is up to date. Not interested in discussion about smoking cessation. We will try to get her a week worth of insulin/needles. I will provide sample of insulin pen with 1 week of needles until she can get what she needs from her primary team Rabia Chavarria (listed as Fe). Reports history of breast lumpectomy. Family history of breast cancer and was put on tamoxifen and she started menopause 44 years old. No bleeding since that time. Sexually active. No vomiting/ diarrhea. No abdominal pain. NO vaginal discharge, no bleeding. No Muscle weakness now. No pain. Ambulatory. Discharge 09/30/17 13:30 Patient feels fine, back to baseline. Weakness has resolved. We have monitored glucose. A1C 12.2 and likely her 230 is about where she is at baseline. She wants to go home. R/B/A to this d/w patient and we encouraged to consider staying night. She knows what to do. We gave her sample of basaglar, she will use this until it is gone and then she will use the samples of the insulin syringes to give herself lantus. Discussed considering a few changes as noted in education. 1. Tresiba is better but more expensive. 2. Metformin is dangerous with renal failure, hold this at d/c. 3. Her GFR has improved and we will continue the invokana for now. 4. Would like to consider having PCP get her on Xultophy as patient assistance. Her DARIO resolved, platelets, mildly low but not specific. Remainder of electrolytes are okay at this point. She will keep fasting glucose log and bring to PCP saturday. No other changes made at d/c except holding metformin. Day of D/C physical examination (From H+P/unchanged). Constitutional: Appearance-No acute distress, lying in exam bad room SCU- 1Consistent with stated age. Orientation- Oriented x 3, alertGait-Normal pace, normal arm movement. Build and Nutrition- overweight BMI 29.9 General- Patient is pleasant and cooperative with the interview and exam. Full sentences, good eye contact, normal cognition. Integumentary: General-No rashes, ulcers or lesions. Palpation- Normal skin moisture/turgor. Skin is warm to touch, appropriate. Capillary refill is normal bilateral Upper and lower extremity. Skin is warm/dry and w/o rashes. Head/Neck: Head- normocephalic and atraumatic. Neck- without visible/palpable lumps or pulsations. Palpation- No bony tenderness about head/neck along frontal, occipital, temporal, parietal, mastoid, jawline, zygoma, orbit or any other location. NO temporal artery tenderness. No TMJ tenderness. Neck Supple. Thyroid-No thyromegaly, no nodules Eye: Bilaterally PERRLA, EOMI. No discharge. Upper and lower eyelids are normal. Sclera/conjunctiva normal without discharge. Cornea is normal and clear. Lens is normal. Eyeball appears normal. No ciliary flushing, no conjunctival injection. ENMT: Pinna- normal without tenderness or erythema. External auditory canal Left- normal without erythema or discharge, no excessive cerumen. External auditory canal Right-normal without erythema or discharge, no excessive cerumen. TM left- Baer/pearly, normal light reflex and anatomy TM Right- Baer/ pearly, normal light reflex and anatomy Hearing Assessment-normal to conversational speech. Nose and sinus- No sinus tenderness along frontal/ maxillary region. External appearance normal and midline. Nares- bilateral quiet airflow, no discharge. Nasal mucosa- No bleeding noted and no ulcerations observed. [place], moist. Turbinates non boggy. Lips- normal color, appear moist without cracks/lesions Oral Cavity/Palate- hard/soft palate intact without lesions,. No Thrush. entition assessed upper dentures in place. Mucosa Tacky, dry. Tongue normal midline. Oropharynx- no pharyngeal erythema, Uvula midline. No post nasal drip. No exudate. Salivary glands- Non tender to palpation CHEST/LUNG: Inspection- symmetric chest wall no pectus deformity. Normal effort , no distress, no use of accessory muscles. Palpation- nontender sternum, ribline. No abnormal pulsations. Auscultation- Breath sounds normal throughout all lung jacobsen. Normal tracheal sounds, Normal bronchial sounds overlying sternum, Bronchovessicular sounds normal between scapulae posteriorly, Normal vessicular breath sounds heard throughout periphery. Lungs are clear today. Adventitious sounds- No wheezes, rales, rhonchi. CARDIOVASCULAR: Carotid artery- normal, no bruits or abnormal pulsations. Jugular vein- no pulsations. Palpation/Percussion- Normal PMI, no palpable thrill Auscultation- Regular rate and rhythm. No murmur noted in sitting, supine positions. Extremities- no digital clubbing, cyanosis, edema, increased warmth. ABDOMEN: Inspection- normal and no visible pulsations. Normal contour. Auscultation- Bowel sounds normal, no abdominal bruits. Palpation/Percussion- soft, non-tender, no rebound tenderness, no rigidity (guarding), no jar tenderness, no masses. Liver-no hepatomegaly, Spleen no splenomegaly, Hernias - none. Rectal not examined. Peripheral Vascular: Upper extremity Left- Normal temperature with pink nailbeds and no ulcerations. Upper extremity Right- Normal temperature with pink nailbeds and no ulcerations. Lower extremity- Normal temperature with pink nailbeds and no ulcerations. DP pulses 2+ bilaterally. Pedal hair intact. Normal capillary refill. Edema- No edema. Numerous excoriations bilateral LE. History of cats at home per patient. Musculoskeletal: Generalized-No generalized swelling or edema of extremities, no digital clubbing or cyanosis, neurovascularly intact all four extremities. Upper extremity- Symmetrical posture. No visible deformity. Normal sensation along medial and lateral upper extremity proximally and distally. NO tenderness overlying shoulder, lateral/medial epicondyle. Assistant Branch Manager 5/5 and strength 5/5 bilateral UE. Elbow palpated, no tenderness overlying olecranon. Normal supination, pronation to active/passive ROM and to resisted rotation. Bicep insertion/tricep insertion appear normal without obvious pathology. Rotator cuff evaluated and intact. Normal wrist ROM bilaterally. Normal hand movement, intrinsic muscles of hands normal. No tenderness to palpation of hands/wrists/ elbows. Lower extremity- Hip: Not tender to palpation, no pain, no swelling, edema or erythema of surrounding tissue, normal strength and tone. Normal appearing hip ROM bilaterally without pain. Knee: Knee ROM normal. No tenderness overlying trochanters, no tenderness about patella, quad tendon, patellar tendon. No tenderness at tibial tuberosity. Ankle: normal ROM not tender to palpation along medial/lateral malleolus. Foot: Normal movement of toes, no tenderness bilateral feet/toes. Normal foot type. Spine/Ribs- No deformities, masses or tenderness, no known fractures, normal strength, Normal ROM. Normal stability No tenderness along C/T/L spine. Normal appearing ROM about spine. Neurological: General- Moves all 4 extremities symmetrically. Symmetrical face and body posture. Cranial nerves- individually evaluated II-XII and intact. PERRLA, Normal EOMI, visual/special senses appear intact, Face is symmetrical and normal sensation/movement, normal tongue, normal strength/posture of neck musculature. Reflexes- intact with DTR 2+ patellar, Achilles, bicep, brachial, tricep. Ankle clonus normal with 2 beats. Strength- 5/5 bilateral UE and LE. Soft touch- intact bilateral UE and LE. Temperature sensation- intact bilateral UE and LE. Neuropsych: Oriented- Person, place, time. (AAOx3), Mood/affect- normal and congruent. Able to articulate well. Speech-Normal speech, normal rate, normal tone, normal use of language, volume and coherence. Thought content- normal with ability to perform basic computations and apply abstract thought/reason. Associations- intact, no SI/HI, no hallucinations, delusions, obsessions. Judgment/insight- Appropriate. Memory-Recall intact, remote and recent memory intact. Knowledge- Age appropriate fund of knowledge, concentration and attention span normal. Lymphatic: Head/Neck- normal size and non tender to palpation. Axillary- normal size and non tender to palpation. Femoral and Inguinal- normal size and non tender to palpation. Plan: 1. D/C Home 2. F/U with PCP saturday 10:45 3. 50 units Basaglar daily (SAMPLE PROVIDED) until gone then 50 units lantus. 4. Hold metformin 5. Smoking cessation encouraged. 6. Compliance necessary.
[2017-09-30] MEDS ORDERED: LANTUS SUBCUT SCH (21:00)
== END 2017-09-30 14:45 | disposition home or self-care (01) ==
LOC: ED 02:43 → SCU 04:56
PROVIDERS: ADMIT Family Medicine; ATTEND Family Medicine
DX: E11.65 Type 2 diabetes mellitus with hyperglycemia (principal); N17.9 Acute kidney failure, unspecified; E87.1 Hypo-osmolality and hyponatremia; R42 Dizziness and giddiness; R11.0 Nausea; Z79.4 Long term (current) use of insulin; Z72.0 Tobacco use
CPT/HCPCS: 36415; 80053; 81001; 82150; 82550; 82803; 82962; 83036; 83690; 84484; 84703; 85025; 93005; 93010; 96361; 96365; 96375; 99236; 99284

== ENCOUNTER 2018-04-12 02:25 | Emergency (ER) ==
[2018-04-12 02:32] VITALS: BP 119/71; BMI 33.1
[2018-04-12 02:38] VITALS: TEMP 96.4
--- NOTE | 2018-04-12 02:50 | ED.PDOC ---
General ED Provider: Dr. CHIQUITA EDWARDS MD Chief Complaint: Hypoglycemia Stated Complaint: I didnt checkmy sugar tonight Time Seen by Physician: 02:45 Mode of Arrival: Ambulance Information Source: Patient Exam Limitations: No limitations Primary Care Provider: JACKIE HUTCHISNO Nursing and Triage Documentation Reviewed and Agree: Yes Does patient meet sepsis criteria?: No If yes, has appropriate treatment been initiated?: Yes System Inflammatory Response Syndrome: Not Applicable Sepsis Protocol: For patient's 13 years and over: Temp is 96.8 and below OR 101 and greater Pulse >90 BPM Resp >20/minute Acutely Altered Mental Status Are patient's symptoms suggestive of a new infection, such as: -Pneumonia -Skin, Soft Tissue -Endocarditis -UTI -Bone, Joint Infection -Implantable Device -Acute Abdominal Infection -Wound Infection -Meningitis -Blood Stream Catheter Infection -Unknown Review of Systems - Review Of Systems Constitutional: Reports: No symptoms Eyes: Reports: No symptoms Ears, Nose, Mouth, Throat: Reports: No symptoms Respiratory: Reports: No symptoms Cardiac: Reports: No symptoms GI: Reports: No symptoms : Reports: No symptoms Musculoskeletal: Reports: No symptoms Skin: Reports: No symptoms Neurological: Reports: No symptoms Endocrine: Reports: No symptoms Hematologic/Lymphatic: Reports: No symptoms All Other Systems: Reviewed and Negative Past Medical History - Past Medical History Previously Healthy: No Endocrine: Reports: DM 2 Cardiovascular: Reports: Hypertension Respiratory: Reports: None Hematological: Reports: None Gastrointestinal: Reports: None Genitourinary: Reports: None Neuro/Psych: Reports: None Musculoskeletal: Reports: None Cancer: Reports: None Last Menstrual Period: 2 YEARS AGO - Surgical History General Surgical History: Reports: Tubal ligation - Family History Family History: Reports: None - Social History Smoking Status: Current every day smoker, Heavy tobacco smoker Hx Substance Use: No Alcohol Screening: None - Immunizations Tetanus Shot up to Date: Yes Physical Exam - Physical Exam Appearance: Obese Ill-appearing: None Pain Distress: None Eyes: LENA ENT: Ears normal Respiratory: Airway patent Cardiovascular: RRR, Pulses normal, No rub, No murmur GI/: Soft, Nontender, No masses, Bowel sounds normal, No Organomegaly Musculoskeletal: Normal strength Skin: Warm, Dry, Normal color Neurological: Sensation intact, Motor intact, Reflexes intact, Cranial nerves intact, Alert, Oriented Psychiatric: Affect appropriate (Neuro intravt oriented X 4), Mood appropriate Critical Care Note - Critical Care Note Total Time (mins): 0 Course - Course Vital Signs: Temp Pulse Resp BP Pulse Ox 04/12/18 02:26 96.4 F L 72 16 119/71 98 Departure - Departure Time of Disposition: 03:00 Disposition: HOME SELF-CARE Discharge Problem: Hypoglycemia Condition: Stable Pt referred to PMD for follow-up: Yes IPMP verified?: No Allergies/Adverse Reactions: Allergies latex Adverse Reaction (Verified 04/12/18 02:32) Home Medications: Ambulatory Orders Atorvastatin Calcium [Lipitor] 40 mg PO DAILY 10/07/12 Losartan Potassium 100 mg PO DAILY 10/07/12 Insulin Glargine,Hum.rec.anlog [Lantus] 50 units SUBCUT BEDTIME 03/08/15 Canagliflozin [Invokana] 300 mg PO DAILY 09/30/17 Gemfibrozil [Lopid] 600 mg PO BIDAC 09/30/17 Hydrochlorothiazide 25 mg PO DAILY 09/30/17 Tamoxifen Citrate 20 mg PO DAILY 09/30/17 Venlafaxine HCl [Venlafaxine HCl ER] 75 mg PO DAILY 09/30/17 Aspirin [Aspirin EC] 81 mg PO DAILY 04/12/18
== END 2018-04-12 03:45 | disposition home or self-care (01) ==
LOC: ED 02:25
DX: E16.2 Hypoglycemia, unspecified (principal); R42 Dizziness and giddiness; R55 Syncope and collapse; Z72.0 Tobacco use
CPT/HCPCS: 82962; 99283

== ENCOUNTER 2018-05-01 07:51 | Outpatient (CLI) ==
[2012-10-07 01:19] VITALS: TEMP 97.8
--- NOTE | 2018-05-02 08:47 | MAMMO ---
EXAM: Bilateral digital screening mammogram (2-D and 3-D) History: Screening Comparison: Bilateral mammogram 03/14/2016 Findings: MLO and CC views of bilateral breasts demonstrate scattered fibroglandular breast parenchy ma. CAD was reviewed by the radiologist. Tomosynthesis was performed. Biopsy clips seen within the left breast. Stable benign bilateral breast calcifications. There are no dominant masses, no suspi cious microcalcifications and no architectural distortions Impression: Benign mammogram with no significant interval change. Recommend followup routine screen ing mammography in 1 year. BIRADS 2, benign
--- NOTE | 2018-05-02 09:03 | HOLTER ---
PATIENT INFORMATION AND COMMENTS Attending Physician: LILLIE PERKINS APRN, [facility]. Indications: IRREGULAR HEARTBEAT __ Patient Medications: ASPIRIN, ATORVASTATIN, INVOKANA, VENLAFAXINE, GEMFIBROZIL , HTCZ, LANTUS, LOSARTAN, TAMOXIFEN __ Pre-procedure Summary: Protocol: Standard Heart Rate Started: 05/01/18904 Minimum: 66 BPM Weight: 185 LBS Ended: 05/02/18 0757 Maximum: 102 BPM Height: 63" Duration: 23 MINUTES Average: 81 BPM _ INTERPRETATIONS/OBSERVATIONS: 1. BASIC RHYTHM: SINUS, RATE 66 BPM TO 100 BPM, AVERAGE 80 BPM 2. RARE PAC'S AND PVC'S--NO ELENA OR TACHY ARRHYTHMIAS 3. NO ST-T WAVE CHANGES FROM BASELINE 4. ACTIVITY LOG NOT MAINTAINED MTDD
== END 2018-05-01 07:52 | disposition home or self-care (01) ==
LOC: RAD 07:51
PROVIDERS: ATTEND Nurse Practitioner Family
DX: Z12.31 Encounter for screening mammogram for malignant neoplasm of breast (principal); R00.8 Other abnormalities of heart beat
CPT/HCPCS: 93227

== ENCOUNTER 2023-06-26 20:30 | Observation (INO) ==
--- NOTE | 2023-06-26 20:58 | ED.PDOC ---
General ED Provider: Dr. PITER BECERRIL MD Chief Complaint: Head Injury Stated Complaint: Patient with a history of type 2 diabetes, hypertension, chronic kidney disease, sleep apnea states she has had watery diarrhea the past 2 days and while standing she had a syncopal episode fell to the floor striking her head or loss of consciousness for several minutes and has had dizziness the past 40 minutes. Patient denies blurred vision neck stiffness slurred speech unsteady gait focal numbness, tingling, weakness in extremity. Patient has a history of right breast carcinoma previous lumpectomy and is scheduled for radiation therapy Time Seen by Provider: 06/26/23 20:48 Mode of Arrival: Walk-In Information Source: Patient Exam Limitations: No limitations and Clinical condition Primary Care Provider: CHIQUITA CURIEL Nursing and Triage Documentation Reviewed and Agree: Yes What is Opioid Naive?: *Opioid Naive implies the patient is not already taking opioids or not chronically receiving opioids on a daily basis. *PRN dosing is not "usually" associated with tolerance. *Patients are at higher risk of over-sedation and aspiration. What is Opioid Tolerant?: *Opioid Tolerance implies less than the expected response to an opioid. *Acquired tolerance is defined by the patient taking 60mg of oral morphine daily (or equianalgesic dose of another opioid) for 1 week or more. *Often associated with chronic pain. *May take more than usual dose to achieve desired pain control. Review of Systems Review Of Systems Constitutional: Reports Weakness Eyes: Reports No symptoms Ears, Nose, Mouth, Throat: Reports No symptoms Respiratory: Reports No symptoms Cardiac: Reports No symptoms GI: Reports Diarrhea (Watery diarrhea the past 48 hours) : Reports No symptoms Musculoskeletal: Reports No symptoms Skin: Reports No symptoms Neurological: Reports Other (Syncopal episode) Endocrine: Reports No symptoms Hematologic/Lymphatic: Reports No symptoms All Other Systems: Reviewed and Negative [facility] Medical History Cataract Cataract repair left eye 03/2020 Cataract repair right eye 03/2020 H26.9 - Unspecified cataract (ICD-10) Diabetes mellitus E11.9 - Type 2 diabetes mellitus without complications (ICD-10) Family History Mother Breast cancer, left FATHER Diabetes Cancer Grandfather/Grandmother Diabetes Lung cancer Stroke Cancer BROTHER Diabetes Social History Smoking and tobacco status: Current every day smoker Tobacco type: cigarettes Smoking packs per day: 1 Tobacco: How many years used: 31 Quit status: considering quitting Second hand smoke exposure: Yes Alcohol intake: current Substance use type: does not use Britney/jainism: NONE Special britney needs: No Agree to transfusion: Yes Adopted: No Caregiver/support person: No Foster care: No Household members: children Housing: house Marital status: M Lives independently: Yes Daycare: no daycare Number of children: 4 Number of grandchildren: 3 Highest education level completed: high school graduate Financial difficulty paying for basics: not very hard service: No shelter: No Current occupational status: employed Current occupation: [employer] [place] Current occupational exposures/hazards: Yes Pets and animals: Yes Leisure activites: fishing History of recent travel: No Sexually active: Yes Do you think of yourself as: straight/heterosexual Current gender identity: female Seatbelt use: always Drives intoxicated or rides with intoxicated substitute bus driver: No Water heater temperature set < 120 degrees: Yes Working smoke detector in home: No Fire extinguisher in home: No Carbon monoxide detector in home: No Firearms in home: No What type of physical activity do you participate in?: walking Surgical History History of tubal ligation Z98.51 - Tubal ligation status (ICD-10) Female Reproductive History Menstrual Hx Hysterectomy: Yes Hx Tubal Ligation: Yes Physical Exam Physical Exam Appearance: Reports Well-appearing and Other (Arrives emergency room ambulatory alert orient x 3) Ill-appearing: None Pain Distress: None Eyes: Reports LENA, EOMI and Conjunctiva clear ENT: Reports Ears normal, Nose normal, Oropharynx normal and Other (Moist buccal mucosa) Neck: Supple (There is no full cervical spinal tenderness noted.) Respiratory: Reports Airway patent, Breath sounds clear and Breath sounds equal Cardiovascular: Reports RRR, Pulses normal, No rub and No murmur GI/: Reports Soft, Nontender, Bowel sounds normal and No Organomegaly Musculoskeletal: Reports Normal strength, ROM intact, No edema and No calf tenderness Skin: Reports Warm and Dry Neurological: Reports Sensation intact, Motor intact, Reflexes intact, Cranial nerves intact, Alert, Oriented and Other (GCS-15, there is frontal scalp tenderness noted. There is no ecchymosis or scalp crepitus.) Psychiatric: Reports Affect appropriate and Mood appropriate Physician Notification Case Discussed Physician Notified: Discussed with hospitalist Grant Lyon Time of Notification: 22:40 Comments: After review of all laboratory data CT scans finding recommendation for observation with telemetry Critical Care Note Critical Care Note Total Critical Care Time (mins): 0 Course Course 06/26/23 21:06 06/26/23 21:06 Orders, Labs, Meds: Lab Review 06/26/23 06/26/23 21:06 22:15 WBC 4.83 RBC 3.96 L Hgb 10.0 L Hct 33.5 L MCV 84.6 MCH 25.3 L MCHC 29.9 L RDW Coeff of Jean 14.9 H Plt Count 103 L Immature Gran % (Auto) 0.2 Neut % (Auto) 58.0 Lymph % (Auto) 29.6 [place] % (Auto) 9.7 Eos % (Auto) 2.1 Baso % (Auto) 0.4 Neut # (Auto) 2.8 Lymph # (Auto) 1.4 [place] # (Auto) 0.5 Eos # (Auto) 0.1 Baso # (Auto) 0.0 Immature Gran # (Auto) 0.0 Sodium 136.8 Potassium 3.64 Chloride 108.4 H Carbon Dioxide 14.8 L Anion Gap 17.24 BUN 70.6 H* Creatinine 3.77 H* Estimated GFR (MDRD) 13.00 BUN/Creatinine Ratio 18.72 Glucose 148.8 H Calcium 9.18 Magnesium 1.90 Total Bilirubin 0.62 AST 25.3 ALT 20.5 Alkaline Phosphatase 99.8 Total Protein 7.43 Albumin 4.26 Globulin 3.17 Albumin/Globulin Ratio 1.34 Urine Color Yellow Urine Clarity Turbid Urine pH 5.5 Ur Specific [place] 1.015 Urine Protein 2+ H Urine Glucose (UA) Negative Urine Ketones Negative Urine Blood Trace-intact H Urine Nitrite Negative Urine Bilirubin Negative Urine Urobilinogen 0.2 Ur Leukocyte Esterase Negative Urine Microscopic RBC 0-2 Ur Squamous Epith Cells Tntc Urine Bacteria 2+ Orders Category Date Time Status OBSERVATION [PLACE PATIENT OBSERVATION] .TO MEDSURG ADMISSION 06/26/23 22:43 Ordered (MONITORED BED) EKG-(ED ONLY) Stat CARDIO 06/26/23 20:58 Completed TELEMETRY MONITORING TELE CARE 06/26/23 22:43 Ordered Dental Receptionist [ED AUTISM SPECIALIST APPLIED] .ONCE EMERGENCY 06/26/23 20:58 Active Orthostatic Vital Signs [ED ORTHOSTATIC VITAL SIGNS] . EMERGENCY 06/26/23 20:58 Active ONCE CBC W/ AUTO DIFF Stat LAB 06/26/23 21:06 Completed CMP [COMPREHENSIVE METABOLIC PANEL] Stat LAB 06/26/23 21:06 Completed MAGNESIUM Stat LAB 06/26/23 21:06 Completed ROTAVIRUS,STOOL Stat LAB 06/26/23 22:15 Received STOOL CULTURE Stat LAB 06/26/23 22:15 Received URINALYSIS C & S IF INDICATED Stat LAB 06/26/23 22:15 Completed URINE CULTURE Stat LAB 06/26/23 22:15 Received Sodium Chloride 0.9% [Sodium Chloride] 500 ml Meds 06/26/23 20:58 Active IV 250 mls/hr CT CERVICAL SPINE W/O CONTRAST Stat RADS 06/26/23 20:[address] HEAD W/O CONTRAST Stat RADS 06/26/23 20:58 Completed Medications Generic Name Dose Route Start Last Admin Trade Name Freq PRN Reason Stop Dose Admin Sodium Chloride 500 mls @ 250 mls/hr 06/26/23 20:58 06/26/23 21:08 Sodium Chloride IV 06/26/23 22:57 250 mls/hr .Q2H ONE Administration Vital Signs: Temp Pulse Resp BP Pulse Ox 06/26/23 21:19 83 107/67 06/26/23 21:18 77 158/78 H 06/26/23 20:32 98.8 F 84 18 128/75 98 Physician Progress Note: History obtained from patient with a history of obstructive sleep apnea, type 2 diabetes, hypertension, chronic kidney disease, recent diagnosed with right breast carcinoma with pending ration therapy. Patient states she has had profuse diarrhea the past 2 days while standing she had a syncopal episode fell to the floor striking her head and loss of consciousness followed by dizziness the past 40 minutes. Patient denies headache, blurred vision, nausea, vomiting, neck stiffness, focal numbness, tingling, weakness in extremity. EKG is consistent with normal sinus rhythm rate of 78 there is left atrial enlargement there is nonspecific ischemic changes noted anteroseptally. There is no prolongation of MN QT interval. This is 1713 Patient given IV fluids 1 L normal saline at 250 mill/hour Orthostatic vital signs supine blood pressure is 158/76, standing blood pressure 107/67. Laboratory data CBC the white blood cell count is 4900, hemoglobin 10, hematocrit 33, platelet count 100,000. The previous BMP from 06/06/2023 the sodium 140, potassium 3.7, chloride 108, bicarb 25, glucose of 89, GFR 17, BUN 58 creatinine 2.9. Today's BMP the sodium 136 potassium 3.6, chloride 108, bicarb is 14.8, glucose 148, the GFR is 13 BUN 70 creatinine 3.7. Anion gap is [address] scan without intravenous contrast interpretation by radiologist shows no acute intracranial hemorrhage there is mild mucosal thickening bilaterally in the maxillary sinus with left greater than the right. The cervical spine CT will follow intravenous contrast interpretation per radiologist shows no acute findings there is loss of normal cervical lordosis suggesting paraspinal muscle spasm Differential diagnosis: 1) acute renal failure 2) acute dehydration 3) acute diarrhea Discussed hospitalist Grant Lyon had 2240 observation with telemetry [] Discharge Plan Discharge Patient Disposition: PLACED OBSERVATION Discharge Problem: Acute dehydration, Acute diarrhea Acute renal failure Qualifiers: Acute renal failure type: unspecified Qualified Code(s): N17.9 - Acute kidney failure, unspecified Prescriptions: No Action (DME) pen needle, diabetic [BD Ultra-Fine Lashawn Pen Needle] 32 gauge x 5/32" needle See Rx Instructions .ROUTE .MEDSUPPLY Qty: 100 3RF Rx Instructions: As directed (DME) lancets [Accu-Chek Fastclix Lancet Drum] Misc See Rx Instructions .ROUTE .MEDSUPPLY Qty: 100 6RF Rx Instructions: As directed amlodipine 10 mg tablet 10 mg PO QDAY Qty: 30 6RF insulin aspart U-100 [Novolog FlexPen U-100 Insulin] 100 unit/mL (3 mL) Insulin Pen 1 unit SUBCUT TID PRN (Reason: Hyperglycemia) Rx Instructions: SLIDING SCALE TID Qvar RediHaler 40 mcg/actuation HFA aerosol breath activated 2 inh INHALATION BID PRN (Reason: shortness of breath or wheezing) Patient Comments: INHALE 2 PUFFS BY MOUTH TWICE DAILY Mounjaro 2.5 mg/0.5 mL pen injector 2.5 mg subcut WEEKLY (DME) blood-glucose meter [Blood Glucose Monitoring] Kit See Rx Instructions .ROUTE Qty: 1 0RF Rx Instructions: check glucose daily (DME) lancets [OneTouch Delica Plus Lancet] 33 gauge misc See Rx Instructions .ROUTE Qty: 100 3RF Rx Instructions: BID carvedilol 3.125 mg tablet 12.5 mg PO BID Rx Instructions: must administer with a meal/food insulin glargine [Lantus Solostar U-100 Insulin] 100 unit/mL (3 mL) insulin pen 55 unit subcut QAM Qty: 3 2RF clotrimazole 1 % cream 1 applic topical TID Qty: 45 1RF atorvastatin 80 mg tablet 80 mg PO QDAY 90 Days Qty: 90 1RF cholecalciferol (vitamin D3) 1,250 mcg (50,000 unit) capsule 1,250 mcg PO .twice weekly Patient Comments: per nephrology Linzess 72 mcg capsule See Rx Instructions .ROUTE .COMPLEX Qty: 30 5RF Dose Instruction: TAKE 1 CAPSULE BY MOUTH EVERY MORNING Rx Instructions: TAKE 1 CAPSULE BY MOUTH EVERY MORNING losartan 100 mg tablet 100 mg PO DAILY Qty: 30 2RF omeprazole 40 mg capsule,delayed release(DR/EC) 40 mg PO QDAY Qty: 90 0RF Did you review [place] CERTIFIED TECHNICIAN for ALL controlled substances?: Not Applicable ED Provider: PITER BECERRIL Condition: Stable Barney Coma Scale Barney Coma Scale Response Scores: Best Response = 15 Comatose Client = 8 or Less Totally Unresponsive = 3
[2023-06-26] MEDS: SODIUM CHLORIDE 500 ML IV ONE (21:08)
[2023-06-26 21:14] LABS: BASOPHILS % (AUTO) 0.4 % (0.0-3.0); EOSINOPHILS # (AUTO) 0.1 K/ul (0.0-0.7); EOSINOPHILS % (AUTO) 2.1 % (0.0-7.0); HEMATOCRIT 33.5 % (37.0-47.0); IMMATURE GRANULOCYTE % (AUTO) 0.2 % (0.0-5.0); LYMPHOCYTES # (AUTO) 1.4 K/uL (0.60-3.4); LYMPHOCYTES % (AUTO) 29.6 (10.0-50.0); MEAN CORPUSCULAR HEMOGLOBIN 25.3 pg (27.0-31.0); MEAN CORPUSCULAR HGB CONC 29.9 (31.8-35.4); MEAN CORPUSCULAR VOLUME 84.6 fl (81.0-99.0); MONOCYTES # (AUTO) 0.5 K/uL (0.4-2.0); MONOCYTES % (AUTO) 9.7 (0-10); NEUTROPHILS # (AUTO) 2.8 K/ul (2.0-6.9); PLATELET COUNT 103 10^3/uL (140-440); RDW COEFFICIENT OF VARIATION 14.9 % (11.6-14.8); RED BLOOD COUNT 3.96 10^6/ul (4.20-5.40); WHITE BLOOD COUNT 4.83 K/ul (4.6-10.2)
[2023-06-26 21:29] LABS: ALANINE AMINOTRANSFERASE 20.5 U/L (0-35); ALBUMIN 4.26 g/dL (3.5-5.0); ALKALINE PHOSPHATASE 99.8 U/L (38-126); ASPARTATE AMINO TRANSFERASE 25.3 U/L (14-36); BILIRUBIN,TOTAL 0.62 mg/dL (0.2-1.3); CALCIUM 9.18 mg/dL (8.4-10.2); CARBON DIOXIDE 14.8 mmol/L (22-30.0); CHLORIDE 108.4 mmol/L (98-107); GLUCOSE 148.8 mg/dL (74-106); MAGNESIUM 1.9 mg/dL (1.6-2.3); POTASSIUM 3.64 mmol/L (3.5-5.1); SODIUM 136.8 mmol/L (134.5-145); TOTAL PROTEIN 7.43 g/dL (6.3-8.2)
[2023-06-26 21:37] LABS: BLOOD UREA NITROGEN 70.6 mg/dL (7-17); CREATININE 3.77 mg/dL (0.60-1.30)
--- NOTE | 2023-06-26 22:07 | CT ---
EXAM: THE SCAN CERVICAL SPINE HISTORY: Injury COMPARISON: Pain FINDINGS: We acquired axial images obtained through the cervical spine utilizing 1.2-mm collimation. Sagittal and coronal reconstructions were imaged and reviewed. There is loss of the normal cervica l lordosis suggesting paraspinal muscle spasm. The vertebral bodies are normal in height and alignme nt. The facet joints are intact. IMPRESSION: Loss normal cervical lordosis suggesting paraspinal muscle spasm.. No acute findings All CT scans are performed using dose optimization techniques as appropriate to the performed exam an d include at least one of the following: Automated exposure control, adjustment of the mA and/or kV according t o size, and the use of iterative reconstruction technique.
--- NOTE | 2023-06-26 22:08 | CT ---
EXAMINATION: HEAD CT WITHOUT CONTRAST HISTORY: Trauma. Syncope. TECHNIQUE: Noncontrast CT of the brain was performed with images acquired from skull base to vertex. 2-D coronal and sagittal reformatted images were obtained from the axial source images. Contrast Dose: None. CT Dose Reduction Techniques Performed: Yes. COMPARISON: 09/30/2017. FINDINGS: Topogram demonstrates no significant abnormality. Intraparenchymal hemorrhage: None. Parenchyma: Normal bernabe-white differentiation. No mass effect or midline shift. Extra-axial spaces and basal cisterns: Normal. Ventricles: Normal size and morphology for age. Paranasal sinuses and mastoid air cells: Mild mucosal thickening bilaterally in the maxillary sinuses with left worse than right. Paranasal sinuses are otherwise clear. Mastoid air cells are clear. Orbits: Normal visualized portions. Sella/Skull Base: Normal. Other: Scalp and visualized soft tissues are normal. Calvarium is normal. IMPRESSION: 1. No intracranial hemorrhage. 2. Mild mucosal thickening bilaterally in the maxillary sinuses with left worse than right. 3. Otherwise unremarkable noncontrast CT scan of the brain. All CT scans are performed using dose optimization techniques as appropriate to the performed exam an d include at least one of the following: Automated exposure control, adjustment of the mA and/or kV according t o size, and the use of iterative reconstruction technique.
[2023-06-26 22:28] LABS: BILIRUBIN,URINE Negative (NEGATIVE); CLARITY,URINE Turbid (CLEAR); COLOR,URINE Yellow (YELLOW); GLUCOSE, URINE (UA) Negative (NEGATIVE); KETONES,URINE Negative (NEGATIVE); LEUKOCYTE ESTERASE ,URINE Negative (NEGATIVE); NITRITE,URINE Negative (NEGATIVE); PH,URINE 5.5 (5-9); PROTEIN,URINE 2+ (NEGATIVE); URINE, BLOOD Trace-intact (NEGATIVE); UROBILINOGEN,URINE 0.2 (0.2)
[2023-06-26 22:35] LABS: BACTERIA,URINE 2+ (NOT PRESENT); SQUAMOUS EPITHELIAL CELL,UR TNTC (0-5); URINE RBC, MICROSCOPIC 0-2 (0-2)
[2023-06-26] MEDS ORDERED: ZOFRAN 4 MG/2 ML IVP PRN (22:45)
[2023-06-26] MEDS ORDERED: TYLENOL PO PRN (22:45)
[2023-06-26] MEDS ORDERED: HUMULIN R SUBCUT PRN (22:47)
[2023-06-26 23:24] VITALS: BMI 37.5
[2023-06-26] MEDS: LACTATED RINGERS 1,000 ML IV SCH (23:27)
[2023-06-27 05:53] LABS: BASOPHILS % (AUTO) 0.2 % (0.0-3.0); EOSINOPHILS # (AUTO) 0.1 K/ul (0.0-0.7); EOSINOPHILS % (AUTO) 2.3 % (0.0-7.0); HEMATOCRIT 29.9 % (37.0-47.0); HEMOGLOBIN 8.9 g/dl (12.0-16.0); IMMATURE GRANULOCYTE % (AUTO) 0.5 % (0.0-5.0); LYMPHOCYTES # (AUTO) 2.1 K/uL (0.60-3.4); LYMPHOCYTES % (AUTO) 48.4 (10.0-50.0); MEAN CORPUSCULAR HEMOGLOBIN 24.9 pg (27.0-31.0); MEAN CORPUSCULAR HGB CONC 29.8 (31.8-35.4); MEAN CORPUSCULAR VOLUME 83.8 fl (81.0-99.0); MONOCYTES # (AUTO) 0.5 K/uL (0.4-2.0); MONOCYTES % (AUTO) 12.4 (0-10); NEUTROPHILS # (AUTO) 1.5 K/ul (2.0-6.9); NEUTROPHILS % (AUTO) 36.2 % (42.2-75.2); PLATELET COUNT 85 10^3/uL (140-440); RDW COEFFICIENT OF VARIATION 14.9 % (11.6-14.8); RED BLOOD COUNT 3.57 10^6/ul (4.20-5.40); WHITE BLOOD COUNT 4.26 K/ul (4.6-10.2)
[2023-06-27 06:10] LABS: ALANINE AMINOTRANSFERASE 17.6 U/L (0-35); ALBUMIN 3.67 g/dL (3.5-5.0); ALKALINE PHOSPHATASE 89.8 U/L (38-126); ASPARTATE AMINO TRANSFERASE 21.7 U/L (14-36); BILIRUBIN,TOTAL 0.43 mg/dL (0.2-1.3); CALCIUM 8.71 mg/dL (8.4-10.2); CARBON DIOXIDE 17.6 mmol/L (22-30.0); CHLORIDE 111.6 mmol/L (98-107); CREATININE 3.4 mg/dL (0.60-1.30); POTASSIUM 3.86 mmol/L (3.5-5.1); SODIUM 139.2 mmol/L (134.5-145); TOTAL PROTEIN 6.47 g/dL (6.3-8.2)
[2023-06-27 06:17] LABS: BLOOD UREA NITROGEN 65.1 mg/dL (7-17)
[2023-06-27] MEDS: COREG PO SCH (09:21)
[2023-06-27] MEDS: NORVASC PO SCH (09:21)
[2023-06-27] MEDS: LANTUS SUBCUT SCH (09:22)
[2023-06-27] MEDS: PRILOSEC PO SCH (09:50)
--- NOTE | 2023-06-27 11:43 | PCM ---
Date of Service Date Seen by Provider: 06/27/23 Time Seen by Provider: 08:30 Admit Day/Time Admission Date: 06/26/23 Admission Time: 22:45 Reason for Admission Chief Complaint: ACUTE RENAL FAILURE, DEHYDRATION, ACUTE DIARRHEA Hospital Provider Hospital Provider: RUBY JOHNSON, [facility] [place] Primary Care Physician: CHIQUITA CURIEL History of Present Illness History of Present Illness: 52 yo female presented to the ER with complaints of ongoing diarrhea. States she has had diarrhea and nausea over the last 2 days that did not improve. Denies any blood present. Denies any fever, chills, abd pain, vomiting, sob. Denies any sick contacts that she is aware of. She was found to have worsening renal function compared to baseline. Admitted to med/surg observation. Case Discussed With Case Discussed With: Patient's case was discussed with the ER Physicians, Dr. Swenson. [facility] Medical History Breast cancer C50.919 - Malignant neoplasm of unspecified site of unspecified female breast (ICD-10) Cataract Cataract repair left eye 03/2020 Cataract repair right eye 03/2020 H26.9 - Unspecified cataract (ICD-10) Diabetes mellitus E11.9 - Type 2 diabetes mellitus without complications (ICD-10) Surgical History History of tubal ligation Z98.51 - Tubal ligation status (ICD-10) Family History Mother Breast cancer, left FATHER Diabetes Cancer Grandfather/Grandmother Diabetes Lung cancer Stroke Cancer BROTHER Diabetes Social History Smoking and tobacco status: Current every day smoker Tobacco type: cigarettes Smoking packs per day: 1 Tobacco: How many years used: 31 Quit status: considering quitting Second hand smoke exposure: Yes Alcohol intake: current Substance use type: does not use Britney/rastafari: NONE Special britney needs: No Agree to transfusion: Yes Adopted: No Caregiver/support person: No Foster care: No Household members: children Housing: house Marital status: M Lives independently: Yes Daycare: no daycare Number of children: 4 Number of grandchildren: 3 Highest education level completed: high school graduate Financial difficulty paying for basics: not very hard service: No long term: No Current occupational status: employed Current occupation: [employer] Current occupational exposures/hazards: Yes Pets and animals: Yes Leisure activites: fishing History of recent travel: No Sexually active: Yes Do you think of yourself as: straight/heterosexual Current gender identity: female Seatbelt use: always Drives intoxicated or rides with intoxicated nascar driver: No Water heater temperature set < 120 degrees: Yes Working smoke detector in home: No Fire extinguisher in home: No Carbon monoxide detector in home: No Firearms in home: No What type of physical activity do you participate in?: walking Allergies Allergies Allergy/AdvReac Type Severity Reaction Status Date / Time hydromorphone [From Dilaudid] AdvReac Nausea Verified 06/26/23 20:55 latex AdvReac Rash Verified 06/26/23 20:55 Current Medications Home Medications insulin aspart U-100 100 unit/mL (3 mL) subcutaneous pen (Novolog FlexPen U-100 Insulin aspart) 1 unit subcut TID PRN Hyperglycemia 06/01/20 [History Confirmed 06/26/23 Last Taken Unknown] clotrimazole 1 % topical cream 1 applic topical TID #45 grams 10/13/20 [Rx Confirmed 06/26/23 Last Taken 06/26/23] pen needle, diabetic 32 gauge x 5/32" (BD Ultra-Fine Lashawn Pen Needle) #100 ea 10/14/20 [Rx Confirmed 06/26/23 Last Taken Unknown] lancets (Accu-Chek Fastclix Lancet Drum) #100 ea 10/17/20 [Rx Confirmed 06/26/23 Last Taken Unknown] amlodipine 10 mg tablet 10 mg PO QDAY #30 tabs 06/30/21 [Rx Confirmed 06/26/23 Last Taken 06/26/23] atorvastatin 80 mg tablet 80 mg PO QDAY 90 days #90 tabs 07/19/21 [Rx Confirmed 06/26/23 Last Taken 06/26/23] cholecalciferol (vitamin D3) 1,250 mcg (50,000 unit) capsule 1,250 mcg PO .twice weekly 07/19/21 [History Confirmed 06/26/23 Last Taken 06/25/23] linaclotide 72 mcg capsule (Linzess) See Rx Instructions .Route .COMPLEX #30 caps 07/19/21 [Rx Confirmed 06/26/23 Last Taken 06/26/23] losartan 100 mg tablet 100 mg PO DAILY #30 tabs 07/19/21 [Rx Confirmed 06/26/23 Last Taken 06/26/23] omeprazole 40 mg capsule,delayed release 40 mg PO QDAY #90 caps 07/19/21 [Rx Confirmed 06/26/23 Last Taken 06/26/23] blood-glucose meter (Blood Glucose Monitoring kit) #1 ea 08/09/21 [Rx Confirmed 06/26/23 Last Taken Unknown] lancets 33 gauge (OneTouch Delica Plus Lancet) #100 ea 09/20/21 [Rx Confirmed 06/26/23 Last Taken Unknown] insulin glargine 100 unit/mL (3 mL) subcutaneous pen (Lantus Solostar U-100 Insulin) 55 unit (0.55 mL) subcut QAM #3 mL 10/03/21 [Rx Confirmed 06/26/23 Last Taken 06/26/23] carvedilol 3.125 mg tablet 12.5 mg PO BID 04/13/22 [History Confirmed 06/26/23 Last Taken 06/26/23] beclomethasone dipropionate 40 mcg/actuation HFA breath activated aerosol (Qvar RediHaler) 2 inh inhalation BID PRN shortness of breath or wheezing 06/26/23 [History Confirmed 06/26/23 Last Taken Unknown] tirzepatide 2.5 mg/0.5 mL subcutaneous pen injector (Mounkerlinero) 2.5 mg subcut WEEKLY 06/26/23 [History Confirmed 06/26/23 Last Taken Unknown] Home Acetaminophen (Acetaminophen 325 Mg Tablet) 650 mg PO Q4H PRN PRN Reason: Mild Pain Amlodipine Besylate (Amlodipine Besylate 5 Mg Tablet) 10 mg PO DAILY [facility] Last Admin: 06/27/23 09:21 Dose: 10 mg Atorvastatin Calcium (Atorvastatin Calcium 20 Mg Tablet) 80 mg PO BEDTIME [facility] Carvedilol (Carvedilol 12.5 Mg Tablet) 12.5 mg PO BIDWM2 [facility] Last Admin: 06/27/23 09:21 Dose: 12.5 mg Lactated Ringer's (Lactated Ringers) 1,000 mls @ 100 mls/hr IV .Q10H [facility] Last Admin: 06/27/23 09:49 Dose: 100 mls/hr Insulin Glargine (Insulin Glargine,Hum.Rec.Anlog 100 Units/Ml) 55 unit SUBCUT QAM [facility] Last Admin: 06/27/23 09:22 Dose: 55 unit Insulin Human Regular (Insulin Regular, Human 100 Unit/Ml (10ml) Vial) 0 unit SUBCUT PRN PRN; Protocol PRN Reason: Hyperglycemia Non-Formulary Medication (Linaclotide [Linzess]) 72 mcg PO DAILY [facility] Last Admin: 06/27/23 09:49 Dose: Not Given Omeprazole (Omeprazole 20 Mg Capsule.Dr) 40 mg PO QDAC2 [facility] Last Admin: 06/27/23 09:50 Dose: 40 mg Ondansetron HCl (Ondansetron Hcl/Pf 4 Mg/2 Ml Sdv) 4 mg IVP Q6H PRN PRN Reason: Nausea / Vomiting Discontinued Medications Sodium Chloride (Sodium Chloride) 500 mls @ 250 mls/hr IV .Q2H ONE Stop: 06/26/23 22:57 Last Infusion: 06/27/23 09:51 Dose: Infused Opioid Naive vs. Tolerant What is Opioid Naive?: *Opioid Naive implies the patient is not already taking opioids or not chronically receiving opioids on a daily basis. *PRN dosing is not "usually" associated with tolerance. *Patients are at higher risk of over-sedation and aspiration. What is Opioid Tolerant?: *Opioid Tolerance implies less than the expected response to an opioid. *Acquired tolerance is defined by the patient taking 60mg of oral morphine daily (or equianalgesic dose of another opioid) for 1 week or more. *Often associated with chronic pain. *May take more than usual dose to achieve desired pain control. Review of Systems Constitutional: Reports No symptoms Head: Reports Normocephalic Eyes: Reports No symptoms Ears: Reports No symptoms Nose: Reports No symptoms Mouth: Reports No symptoms Throat: Reports No symptoms Cardiovascular: Reports No symptoms Respiratory: Reports No symptoms Gastrointestinal: Reports Diarrhea Genitourinary: Reports No Symptoms Musculoskeletal: Reports No symptoms Endocrine: Reports No symptoms Hematology: Reports No symptoms Immunology: Reports No symptoms Neurological: Reports No symptoms Psychiatric: Reports No symptoms Physical examination Most Recent Vital Signs: Most Recent Vital Signs Temperature 98.4 F 06/27/23 10:00 Temperature Source Temporal Artery Scan 06/27/23 10:00 Temperature Source Temporal Artery Scan 06/26/23 20:32 Pulse Rate 76 06/27/23 10:00 Respiratory Rate 19 06/27/23 10:00 Blood Pressure 133/81 06/27/23 10:00 Blood Pressure Mean 98 06/27/23 10:00 Blood Pressure Left Arm 148/85 06/26/23 23:13 Blood Pressure Location Right Arm 06/27/23 10:00 Blood Pressure Position Sitting 06/27/23 10:00 O2 Sat by Pulse Oximetry 94 L 06/27/23 10:00 Oxygen Delivery Method Room Air 06/27/23 11:24 Height 5 ft 3 in 06/26/23 23:13 Weight 212 lb 3.2 oz 06/26/23 23:13 Telemetry Type Remote Telemetry 06/27/23 07:00 Telemetry Monitoring Continues 06/27/23 07:00 Telemetry Heart Rate 70 06/27/23 07:00 EKG PA Interval 0.17 06/27/23 07:00 EKG QRS Interval 0.09 06/27/23 07:00 Telemetry Strip Reading NSR 06/27/23 07:00 Appearance: Positive No Apparent Distress and Alert and Oriented x3 Skin: Positive Warm HEENT: Positive Normocephalic and PERRLA Neck: Positive Supple and Midline Trachea Chest/Lungs: Positive Symmetrical With Equal Breath Sounds, Clear to Auscultation Bilaterally and Good Air Movement all 4 Lung [place] Heart: Positive RRR and Pulses Normal GI/: Positive Soft, Nontender, Bowel Sounds Normal and No Distention Musculoskeletal: Positive Not Examined Extremities: Positive Intact Peripheral Pulses, Stable Joints Without Laxity and Good ROM in All Joints Neurological: Positive Sensation Intact, Motor intact, Reflexes Intact, Alert, Oriented and Muscle Strength 5/5 in Upper and Lower Extremities Bilaterally Psychiatric: Positive Oriented x4, Appropriate Mood, Appropriate Affect, Intact Memory, Good Short-Term Recall, Good Long-Term Recall, Normal Judgement and No rmal Insight Labs This Visit Labs This Visit: Labs This Visit 06/26/23 06/26/23 06/27/23 21:06 22:15 05:30 WBC 4.83 4.26 L RBC 3.96 L 3.57 L Hgb 10.0 L 8.9 L Hct 33.5 L 29.9 L MCV 84.6 83.8 MCH 25.3 L 24.9 L MCHC 29.9 L 29.8 L RDW Coeff of Jean 14.9 H 14.9 H Plt Count 103 L 85 L Immature Gran % (Auto) 0.2 0.5 Neut % (Auto) 58.0 36.2 L Lymph % (Auto) 29.6 48.4 [place] % (Auto) 9.7 12.4 H Eos % (Auto) 2.1 2.3 Baso % (Auto) 0.4 0.2 Neut # (Auto) 2.8 1.5 L Lymph # (Auto) 1.4 2.1 [place] # (Auto) 0.5 0.5 Eos # (Auto) 0.1 0.1 Baso # (Auto) 0.0 0.0 Immature Gran # (Auto) 0.0 0.0 Sodium 136.8 139.2 Potassium 3.64 3.86 Chloride 108.4 H 111.6 H Carbon Dioxide 14.8 L 17.6 L Anion Gap 17.24 13.86 BUN 70.6 H* 65.1 H* Creatinine 3.77 H* 3.40 H Estimated GFR (MDRD) 13.00 14.00 BUN/Creatinine Ratio 18.72 19.14 Glucose 148.8 H 92.0 D Calcium 9.18 8.71 Magnesium 1.90 Total Bilirubin 0.62 0.43 AST 25.3 21.7 ALT 20.5 17.6 Alkaline Phosphatase 99.8 89.8 Total Protein 7.43 6.47 Albumin 4.26 3.67 Globulin 3.17 2.80 Albumin/Globulin Ratio 1.34 1.31 Urine Color Yellow Urine Clarity Turbid Urine pH 5.5 Ur Specific [place] 1.015 Urine Protein 2+ H Urine Glucose (UA) Negative Urine Ketones Negative Urine Blood Trace-intact H Urine Nitrite Negative Urine Bilirubin Negative Urine Urobilinogen 0.2 Ur Leukocyte Esterase Negative Urine Microscopic RBC 0-2 Ur Squamous Epith Cells Tntc Urine Bacteria 2+ Microbiology This Visit 06/26/23 22:15 Urine,Clean Catch Urine Culture - Preliminary Review Statement Review Statement: I have independently reviewed and interpreted the labs/EKGs/imaging that were ordered by the ER provider. I have reviewed all outside records that are available currently in our EMR including imaging/notes/labs from previous visits. Plan Plan: 1. Metabolic acidosis secondary to diarrhea and dehydration - Improving, LR@100mL/hr, repeat labs in am 2. DARIO - mild, baseline creatinine 2-2.2, 3.7 on admission, 3.4 with fluids, LR@100mL/hr, avoid nephrotoxins/hypotension 3. Diarrhea - stool culture and rotavirus pending, likely viral syndrome, stew quency decreased per patient 4. DM2 - ADA diet, accuchecks qid with ssi, home lantus ordered 4. Hypertension - chronic, continue home medications DVT Prophylaxis: Ambulation Time Spent: Greater than 80 minutes spent with patient, 50% of the time spent with this patient was devoted to counseling and coordination of care. Advanced Care Plannin minutes spent discussing advance care planning. Smoking Cessation: 3-10 minutes spent discussing smoking cessation. Disposition: Admit to: Med/Surg Observation Full Code Discussed Plan of Care with Dr. Melissa Mcintyre. Medications Medication Orders: Medications Ordered Category Date Time Status Acetaminophen [Tylenol] Meds 06/26/23 22:45 Active 650 mg PO Q4H PRN Amlodipine Besylate [Norvasc] Meds 06/27/23 09:00 Active 10 mg PO DAILY Atorvastatin Calcium [Lipitor] Meds 06/27/23 21:00 Active 80 mg PO BEDTIME Carvedilol [Coreg] Meds 06/27/23 07:30 Active 12.5 mg PO BIDWM2 Insulin Glargine,Hum.rec.anlog [Lantus] Meds 06/27/23 09:00 Active 55 unit SUBCUT QAM Insulin Regular, Human [Humulin R] Meds 06/26/23 22:47 Active See Protocol SUBCUT PRN PRN Omeprazole [Prilosec] Meds 06/27/23 09:00 Active 40 mg PO QDAC2 Ondansetron HCl/Pf [Zofran 4 mg/2 ml] Meds 06/26/23 22:45 Active 4 mg IVP Q6H PRN Ringers Lactated Solution [Lactated Ringers] 1,000 ml Meds 06/26/23 23:00 Active IV 100 mls/hr linaclotide [Linzess] Meds 06/27/23 09:00 Active 72 mcg PO DAILY
[2023-06-27] MEDS: LIPITOR PO SCH (20:55)
[2023-06-28 05:31] LABS: BASOPHILS % (AUTO) 0.3 % (0.0-3.0); EOSINOPHILS # (AUTO) 0.1 K/ul (0.0-0.7); EOSINOPHILS % (AUTO) 1.8 % (0.0-7.0); HEMATOCRIT 29.1 % (37.0-47.0); HEMOGLOBIN 8.8 g/dl (12.0-16.0); LYMPHOCYTES # (AUTO) 1.8 K/uL (0.60-3.4); LYMPHOCYTES % (AUTO) 54.1 (10.0-50.0); MEAN CORPUSCULAR HEMOGLOBIN 25.5 pg (27.0-31.0); MEAN CORPUSCULAR HGB CONC 30.2 (31.8-35.4); MEAN CORPUSCULAR VOLUME 84.3 fl (81.0-99.0); MONOCYTES # (AUTO) 0.3 K/uL (0.4-2.0); MONOCYTES % (AUTO) 8.2 (0-10); NEUTROPHILS # (AUTO) 1.2 K/ul (2.0-6.9); NEUTROPHILS % (AUTO) 35.6 % (42.2-75.2); PLATELET COUNT 82 10^3/uL (140-440); RDW COEFFICIENT OF VARIATION 14.7 % (11.6-14.8); RED BLOOD COUNT 3.45 10^6/ul (4.20-5.40); WHITE BLOOD COUNT 3.31 K/ul (4.6-10.2)
[2023-06-28 05:49] LABS: ALBUMIN 3.49 g/dL (3.5-5.0); ALKALINE PHOSPHATASE 94.5 U/L (38-126); ASPARTATE AMINO TRANSFERASE 19.2 U/L (14-36); BILIRUBIN,TOTAL 0.32 mg/dL (0.2-1.3); BLOOD UREA NITROGEN 55.1 mg/dL (7-17); CALCIUM 9.18 mg/dL (8.4-10.2); CARBON DIOXIDE 17.2 mmol/L (22-30.0); CHLORIDE 114.7 mmol/L (98-107); CREATININE 2.68 mg/dL (0.60-1.30); POTASSIUM 4.13 mmol/L (3.5-5.1); SODIUM 141.8 mmol/L (134.5-145); TOTAL PROTEIN 6.27 g/dL (6.3-8.2)
--- NOTE | 2023-06-28 09:38 | DCSUM ---
Admission Date Admission Date: 06/26/23 Discharge Date Discharge Date: 06/28/23 Admission Diagnosis Admission Diagnosis: 1. Metabolic acidosis secondary to diarrhea and dehydration 2. DARIO 3. Diarrhea 4. DM2 4. Hypertension Discharge Diagnosis Discharge Diagnosis: 1. Metabolic acidosis secondary to diarrhea and dehydration - Resolved 2. DARIO - Resolved 3. Diarrhea - Resolved, cultures uncollected 4. DM2 - chronic, stable 4. Hypertension - chronic, stable Hospital Provider Hospital Provider: RUBY JOHNSON, [facility] [place] Phys[place] Primary Care Physician: CHIQUITA CURIEL Summary of History and Physical Summary of History and Physical: 52 yo female presented to the ER with complaints of ongoing diarrhea. States she has had diarrhea and nausea over the last 2 days that did not improve. Denies any blood present. Denies any fever, chills, abd pain, vomiting, sob. Denies any sick contacts that she is aware of. She was found to have worsening renal function compared to baseline. Admitted to med/surg observation. Hospital Course Subjective: During stay, patient was treated for metabolic acidosis/DARIO secondary to diarrhea. Likely viral cause. No further episodes of diarrhea after admission. Stool culture and rotavirus ordered but unable to collect. Received LR@100mL/hr and conditions resolved. No further issues during stay. Feeling much better today and requesting discharge. No changes made to home medications. Appearance: Pleasant, No Apparent Distress and Alert HEENT: MMM, Supple and No JVD CVS: No Murmur Abdomen: Soft, Non-Tender and No Distention Respiratory: No Dyspnea Extremities: No Edema Vital Signs: Most Recent Vital Signs Temperature 97.1 F L 06/28/23 05:00 Temperature Source Temporal Artery Scan 06/28/23 05:00 Temperature Source Temporal Artery Scan 06/26/23 20:32 Pulse Rate 66 06/28/23 05:02 Respiratory Rate 16 06/28/23 07:32 Blood Pressure 153/86 H 06/28/23 05:02 Blood Pressure Mean 99 06/28/23 05:00 Blood Pressure Left Arm 148/85 06/26/23 23:13 Blood Pressure Location Right Arm 06/28/23 05:02 Blood Pressure Position Standing 06/28/23 05:02 O2 Sat by Pulse Oximetry 98 06/28/23 05:00 Oxygen Delivery Method Room Air 06/28/23 09:00 Height 5 ft 3 in 06/26/23 23:13 Weight 212 lb 3.2 oz 06/26/23 23:13 Telemetry Type Remote Telemetry 06/28/23 07:00 Telemetry Monitoring Continues 06/28/23 07:00 Telemetry Heart Rate 68 06/28/23 07:00 EKG LA Interval 0.23 H 06/28/23 07:00 EKG QRS Interval 0.09 06/28/23 07:00 Telemetry Strip Reading SR with 1st degree AVB 06/28/23 07:00 Lab Results Last 24 Hours: 06/28/23 05:13 WBC 3.31 L RBC 3.45 L Hgb 8.8 L Hct 29.1 L MCV 84.3 MCH 25.5 L MCHC 30.2 L RDW Coeff of Jean 14.7 Plt Count 82 L Immature Gran % (Auto) 0.0 Neut % (Auto) 35.6 L Lymph % (Auto) 54.1 H [place] % (Auto) 8.2 Eos % (Auto) 1.8 Baso % (Auto) 0.3 Neut # (Auto) 1.2 L Lymph # (Auto) 1.8 [place] # (Auto) 0.3 L Eos # (Auto) 0.1 Baso # (Auto) 0.0 Immature Gran # (Auto) 0.0 Sodium 141.8 Potassium 4.13 Chloride 114.7 H Carbon Dioxide 17.2 L Anion Gap 14.03 BUN 55.1 H Creatinine 2.68 H D Estimated GFR (MDRD) 19.00 BUN/Creatinine Ratio 20.55 Glucose 96.0 Calcium 9.18 Total Bilirubin 0.32 AST 19.2 ALT 16.0 Alkaline Phosphatase 94.5 Total Protein 6.27 L Albumin 3.49 L Globulin 2.78 Albumin/Globulin Ratio 1.25 Discharge Instructions Discharge Planning: Discharge Planning > 40 minutes If patient is discharged with left ventricular systolic dysfunction: NA Discharged with a beta patsy? [] If no, why not? [] Discharged with an amrik/arb? [] If no, why not? [] DX: VIRAL GASTROENTERITIS RX: NONE BLAND DIET, ADVANCE TOLERATED ACTIVITY TOLERATED FOLLOW-UP WITH PCP NEXT WEEK Discharge Medications: Medications at Discharge (Home Meds & RX) insulin aspart U-100 100 unit/mL (3 mL) subcutaneous pen (Novolog FlexPen U-100 Insulin aspart) 1 unit subcut TID PRN Hyperglycemia 06/01/20 clotrimazole 1 % topical cream 1 applic topical TID #45 grams 10/13/20 pen needle, diabetic 32 gauge x 5/32" (BD Ultra-Fine Lashawn Pen Needle) #100 ea 10/14/20 lancets (Accu-Chek Fastclix Lancet Drum) #100 ea 10/17/20 amlodipine 10 mg tablet 10 mg PO QDAY #30 tabs 06/30/21 atorvastatin 80 mg tablet 80 mg PO QDAY 90 days #90 tabs 07/19/21 cholecalciferol (vitamin D3) 1,250 mcg (50,000 unit) capsule 1,250 mcg PO .twice weekly 07/19/21 linaclotide 72 mcg capsule (Linzess) See Rx Instructions .Route .COMPLEX #30 caps 07/19/21 losartan 100 mg tablet 100 mg PO DAILY #30 tabs 07/19/21 omeprazole 40 mg capsule,delayed release 40 mg PO QDAY #90 caps 07/19/21 blood-glucose meter (Blood Glucose Monitoring kit) #1 ea 08/09/21 lancets 33 gauge (OneTouch Delica Plus Lancet) #100 ea 09/20/21 insulin glargine 100 unit/mL (3 mL) subcutaneous pen (Lantus Solostar U-100 Insulin) 55 unit (0.55 mL) subcut QAM #3 mL 10/03/21 carvedilol 3.125 mg tablet 12.5 mg PO BID 04/13/22 beclomethasone dipropionate 40 mcg/actuation HFA breath activated aerosol (Qvar RediHaler) 2 inh inhalation BID PRN shortness of breath or wheezing 06/26/23 tirzepatide 2.5 mg/0.5 mL subcutaneous pen injector (Mounjaro) 2.5 mg subcut WEEKLY 06/26/23 Discharge Plan Discharge Discharge Orders: Discharge Patient (ONCE); Ordered 06/28/23 Ordered By: NIRAJ DUQUE Activity Restrictions/Additional Instructions: Walker diet, advance as tolerated Activity as tolerated Follow-up with PCP next week No medication changes Instructions: Dehydration (GEN), Gastroenteritis (GEN) Patient Disposition: HOME SELF-CARE Prescriptions: Continued (DME) pen needle, diabetic [BD Ultra-Fine Lashawn Pen Needle] 32 gauge x 5/32" needle See Rx Instructions .ROUTE .MEDSUPPLY Qty: 100 3RF Rx Instructions: As directed (DME) lancets [Accu-Chek Fastclix Lancet Drum] Misc See Rx Instructions .ROUTE .MEDSUPPLY Qty: 100 6RF Rx Instructions: As directed amlodipine 10 mg tablet 10 mg PO QDAY Qty: 30 6RF insulin aspart U-100 [Novolog FlexPen U-100 Insulin] 100 unit/mL (3 mL) Insulin Pen 1 unit SUBCUT TID PRN (Reason: Hyperglycemia) Rx Instructions: SLIDING SCALE TID Qvar RediHaler 40 mcg/actuation HFA aerosol breath activated 2 inh INHALATION BID PRN (Reason: shortness of breath or wheezing) Patient Comments: INHALE 2 PUFFS BY MOUTH TWICE DAILY Mounjaro 2.5 mg/0.5 mL pen injector 2.5 mg subcut WEEKLY (DME) blood-glucose meter [Blood Glucose Monitoring] Kit See Rx Instructions .ROUTE Qty: 1 0RF Rx Instructions: check glucose daily (DME) lancets [OneTouch Delica Plus Lancet] 33 gauge misc See Rx Instructions .ROUTE Qty: 100 3RF Rx Instructions: BID carvedilol 3.125 mg tablet 12.5 mg PO BID Rx Instructions: must administer with a meal/food insulin glargine [Lantus Solostar U-100 Insulin] 100 unit/mL (3 mL) insulin pen 55 unit subcut QAM Qty: 3 2RF clotrimazole 1 % cream 1 applic topical TID Qty: 45 1RF atorvastatin 80 mg tablet 80 mg PO QDAY 90 Days Qty: 90 1RF cholecalciferol (vitamin D3) 1,250 mcg (50,000 unit) capsule 1,250 mcg PO .twice weekly Patient Comments: per nephrology Linzess 72 mcg capsule See Rx Instructions .ROUTE .COMPLEX Qty: 30 5RF Dose Instruction: TAKE 1 CAPSULE BY MOUTH EVERY MORNING Rx Instructions: TAKE 1 CAPSULE BY MOUTH EVERY MORNING losartan 100 mg tablet 100 mg PO DAILY Qty: 30 2RF omeprazole 40 mg capsule,delayed release(DR/EC) 40 mg PO QDAY Qty: 90 0RF Did you review [place] NETWORKING TECHNICIAN for ALL controlled substances?: No Discussed opioids are addictive and Narcan is available by prescription or from pharmacy.: No Condition: Stable Referrals: CHIQUITA CURIEL MD [Primary Care Provider] - 07/04/23 10:15 am
[2023-06-28 09:47] VITALS: BP 131/81; PULSE 65; RESP 18; TEMP 97.2
== END 2023-06-28 10:00 | disposition home or self-care (01) ==
LOC: MEDSURG B 20:30 → ED 20:30 → MEDSURG B 23:15
PROVIDERS: ADMIT Hospitalist; ATTEND Nurse Practitioner Family
DX: E86.0 Dehydration; R42 Dizziness and giddiness; W19.XXXA Unspecified fall, initial encounter; N18.9 Chronic kidney disease, unspecified; Z79.899 Other long term (current) drug therapy; R19.7 Diarrhea, unspecified; S09.90XA Unspecified injury of head, initial encounter; F17.210 Nicotine dependence, cigarettes, uncomplicated; N17.9 Acute kidney failure, unspecified; Z79.4 Long term (current) use of insulin; E11.9 Type 2 diabetes mellitus without complications; R55 Syncope and collapse; I10 Essential (primary) hypertension; E87.21 Acute metabolic acidosis; Z51.81 Encounter for therapeutic drug level monitoring